=== PATIENT | male | born 1950 ===

== ENCOUNTER 2018-07-29 19:37 | Inpatient (IN) | payer MEDICARE ==
[2018-07-29 20:32] LABS: Hematocrit 26.3 % (35.5-45.6); Hemoglobin 8.5 gm/dl (11.8-15.2); Mean Corpuscular HGB Conc 32 % (32-34); Mean Corpuscular Volume 82 fl (84-94); Platelet Count 321 K/mm3 (140-440); Red Blood Count 3.23 M/mm3 (3.65-5.03)
[2018-07-29 20:40] LABS: Calcium 8.2 mg/dL (8.4-10.2)
[2018-07-29 21:18] LABS: Total Cells Counted 100
[2018-07-29 21:19] LABS: Anisocytosis 2+; Poikilocytosis 2+
[2018-07-29 21:20] LABS: Ovalocytes 1+; Schistocytes 2+
[2018-07-29 21:21] LABS: Burr Cells 1+; Target Cells Few
[2018-07-29 21:22] LABS: Platelet Estimate Consistent w Auto
--- NOTE | 2018-07-29 23:06 | XRay Report ---
FINAL REPORT PROCEDURE: XR CHEST ROUTINE 2V TECHNIQUE: PA and lateral chest radiographs were obtained. CPT 88321 HISTORY: Shortness of breath COMPARISON: 03/27/2018 FINDINGS: Heart: Heart size is slightly prominent but stable. Mediastinum/Vessels: Normal. Lungs/Pleural space: Mild atelectasis both lower lungs. Slight vascular congestion. Mild left effusio n is noted. Bony thorax: No acute osseous abnormality. Other: IMPRESSION: There is slight vascular congestion with mild atelectasis in both lower lungs. Mild left effusion..
[2018-07-29] MEDS ORDERED: LASIX IV ONE (23:25)
--- NOTE | 2018-07-30 00:01 | Emergency Department Report ---
ED Shortness of Breath HPI - General Chief Complaint: Dyspnea/Respdistress Stated Complaint: SOB Time Seen by Provider: 07/29/18 22:09 Source: patient, family Mode of arrival: Wheelchair Limitations: No Limitations - History of Present Illness Initial Comments: 67-year-old male with history of CHF presents to ED with complaint of shortness of breath and swelling to left hand 3 days. The patient reports dry cough. Patient reports chronic swelling in bilateral lower legs, however, states that they have increased over the last few days. Patient denies fever. States he is currently on Lasix, and is compliant with it. PCP: Dr Pilar RAYGOZA Complaint: shortness of breath, cough -: days(s) (3) Severity: moderate Consistency: constant Improves With: nothing, rest Known History Of: congestive heart failure Associated Symptoms: cough - Related Data Home Medications Medication Instructions Recorded Confirmed Last Taken Mv-Mins/Folic Acid/Guarana/Caf 1 each PO DAILY 10/26/17 04/24/18 04/23/18 [One Daily Tablet] 1 tablet Previous Rx's Medication Instructions Recorded Last Taken Type Sitagliptin Phosphate [Januvia] 100 mg PO DAILY #30 tablet 10/30/17 04/23/18 10:00 Rx oxyCODONE /ACETAMINOPHEN [Percocet 1 tab PO Q6H PRN #10 tablet 04/02/18 04/22/18 10:00 Rx 5/325 mg] Acetaminophen [Acetaminophen TAB] 650 mg PO Q4H PRN tablet 04/27/18 Unknown Rx Aspirin EC [Aspirin Enteric Coated 81 mg PO QDAY #30 tablet 04/27/18 Unknown Rx TAB] AtorvaSTATin [Lipitor] 10 mg PO DAILY #30 tablet 04/27/18 Unknown Rx Carvedilol [Coreg] 6.25 mg PO BID #60 tablet 04/27/18 Unknown Rx Clopidogrel [Plavix] 75 mg PO QDAY #30 tablet 04/27/18 Unknown Rx Doxycycline [Vibramycin CAP] 100 mg PO BID #42 capsule 04/27/18 Unknown Rx Ferrous Sulfate [Iron] 325 mg PO DAILY #30 tablet 04/27/18 Unknown Rx Gabapentin [Neurontin] 100 mg PO Q8HR #90 capsule 04/27/18 Unknown Rx Linagliptin [Tradjenta] 5 mg PO QDAY tablet 04/27/18 Unknown Rx glipiZIDE [Glipizide] 10 mg PO DAILY #30 tablet 04/27/18 Unknown Rx levoFLOXacin [Levaquin TAB] 500 mg PO Q48H #11 tablet 04/27/18 Unknown Rx oxyCODONE /ACETAMINOPHEN [Percocet 1 tab PO Q6H PRN #20 tablet 04/27/18 Unknown Rx 5/325 mg] Allergies Allergy/AdvReac Type Severity Reaction Status Date / Time No Known Allergies Allergy Verified 07/29/18 19:52 ED Review of Systems ROS: Stated complaint: SOB Other details as noted in HPI Comment: All other systems reviewed and negative Constitutional: denies: chills, fever Respiratory: cough, shortness of breath Cardiovascular: denies: chest pain Musculoskeletal: other (reports increased swelling to BLE and to left hand) ED Past Medical Hx - Past Medical History Hx Hypertension: Yes (CHF) Hx CVA: Yes Hx Heart Attack/AMI: No Hx Congestive Heart Failure: Yes Hx Diabetes: Yes Hx Deep Vein Thrombosis: Yes Hx Liver Disease: No (h/o DVT lower extremeties per notes in chart) Hx Renal Disease: Yes (CKD) Hx Sickle Cell Disease: No Hx Arthritis: Yes Hx Seizures: No Hx Asthma: No Hx COPD: No Hx Dementia: No Hx HIV: No Additional medical history: High Cholesterol - Surgical History Hx Coronary Stent: No Hx Pacemaker: No Hx Internal Defibrillator: No Additional Surgical History: jannet cataract surgery - Social History Smoking Status: Former Smoker Substance Use Type: None - Medications Home Medications: Home Medications Medication Instructions Recorded Confirmed Last Taken Type Mv-Mins/Folic Acid/Guarana/Caf 1 each PO DAILY 10/26/17 04/24/18 04/23/18 History [One Daily Tablet] 1 tablet Sitagliptin Phosphate [Januvia] 100 mg PO DAILY #30 tablet 10/30/17 04/24/18 04/23/18 10:00 Rx oxyCODONE /ACETAMINOPHEN [Percocet 1 tab PO Q6H PRN #10 tablet 04/02/18 04/24/18 04/22/18 10:00 Rx 5/325 mg] Acetaminophen [Acetaminophen TAB] 650 mg PO Q4H PRN tablet 04/27/18 Unknown Rx Aspirin EC [Aspirin Enteric Coated 81 mg PO QDAY #30 tablet 04/27/18 Unknown Rx TAB] AtorvaSTATin [Lipitor] 10 mg PO DAILY #30 tablet 04/27/18 Unknown Rx Carvedilol [Coreg] 6.25 mg PO BID #60 tablet 04/27/18 Unknown Rx Clopidogrel [Plavix] 75 mg PO QDAY #30 tablet 04/27/18 Unknown Rx Doxycycline [Vibramycin CAP] 100 mg PO BID #42 capsule 04/27/18 Unknown Rx Ferrous Sulfate [Iron] 325 mg PO DAILY #30 tablet 04/27/18 Unknown Rx Gabapentin [Neurontin] 100 mg PO Q8HR #90 capsule 04/27/18 Unknown Rx Linagliptin [Tradjenta] 5 mg PO QDAY tablet 04/27/18 Unknown Rx glipiZIDE [Glipizide] 10 mg PO DAILY #30 tablet 04/27/18 Unknown Rx levoFLOXacin [Levaquin TAB] 500 mg PO Q48H #11 tablet 04/27/18 Unknown Rx oxyCODONE /ACETAMINOPHEN [Percocet 1 tab PO Q6H PRN #20 tablet 04/27/18 Unknown Rx 5/325 mg] ED Physical Exam - General Limitations: No Limitations General appearance: alert, in no apparent distress - Head Head exam: Present: atraumatic, normocephalic - Eye Eye exam: Present: normal appearance - ENT ENT exam: Present: mucous membranes moist - Neck Neck exam: Present: normal inspection - Respiratory Respiratory exam: Present: rales (slight rales at the lung bases bilaterally). Absent: respiratory distress - Cardiovascular Cardiovascular Exam: Present: regular rate, normal rhythm - GI/Abdominal GI/Abdominal exam: Present: soft. Absent: distended, tenderness - Extremities Exam Extremities exam: Present: other (appearance of lymphedema to bilateral lower legs; 2+ edema to left hand, nontender, no erythema) - Neurological Exam Neurological exam: Present: alert, oriented X3 - Psychiatric Psychiatric exam: Present: normal affect, normal mood - Skin Skin exam: Present: warm, dry ED Course Vital Signs 07/29/18 07/29/18 07/29/18 19:52 22:44 22:46 Temperature 97.2 F L Pulse Rate 70 67 Respiratory 16 17 Rate Blood Pressure 184/107 189/110 O2 Sat by Pulse 99 100 99 Oximetry 07/29/18 07/29/18 07/30/18 23:00 23:16 00:00 Temperature Pulse Rate 64 61 66 Respiratory 19 21 14 Rate Blood Pressure 173/97 173/97 182/115 O2 Sat by Pulse 100 99 99 Oximetry 07/30/18 07/30/18 01:00 02:00 Temperature Pulse Rate 69 63 Respiratory 17 19 Rate Blood Pressure 184/107 175/86 O2 Sat by Pulse 100 99 Oximetry ED Medical Decision Making - Lab Data Result diagrams: 07/29/18 20:14 07/29/18 20:14 - EKG Data -: EKG Interpreted by Me EKG shows normal: sinus rhythm, intervals, QRS complexes, ST-T waves Rate: normal - EKG Data Interpretation: no acute changes, other (left axis deviation, prolonged QT) - Radiology Data Radiology results: report reviewed, image reviewed - Medical Decision Making 67-year-old male with history of congestive heart failure presents with increased swelling to bilateral lower extremities, swelling to left hand, cough and shortness of breath. Symptoms ongoing 3 days. On exam patient has slight rales the bilateral lung bases, significant edema to bilateral lower extremities, also pitting edema to the left hand. BNP elevated to 40,000. Creatinine 2.2 today, which is slightly increased from his last creatinine of 1.6 which was 4 months ago. However, Dr. Quezada, pt's PCP, stated in his H&P at that time the patient's baseline creatinine is around 2. Troponin slightly elevated, likely due to decreased renal function. EKG does not show any acute ST changes. One dose of IV Lasix 80 mg was given. Spoke with Dr. Álvarez, hospitalist, agrees to admit the patient. - Differential Diagnosis PE, pneumonia, URI Critical care attestation.: If time is entered above; I have spent that time in minutes in the direct care of this critically ill patient, excluding procedure time. ED Disposition Clinical Impression: CHF exacerbation Disposition: OP ADMIT IP TO THIS HOSP Is pt being admited?: Yes Condition: Stable Referrals: PRIMARY CARE, [Primary Care Provider] - 3-5 Days
[2018-07-30 00:37] LABS: INR 1.18 (0.87-1.13)
[2018-07-30 00:38] LABS: Partial Thromboplastin Time 33.9 Sec. (24.2-36.6)
[2018-07-30 02:05] LABS: Chol/HDL Ratio 2.18 %
[2018-07-30] MEDS ORDERED: D50W (25GM) Syringe IV PRN (03:14)
[2018-07-30 04:01] LABS: Creatine Kinase MB 1.8 ng/mL (0.0-4.0)
[2018-07-30] MEDS: APRESOLINE IV PRN ×2 (04:32→21:12)
[2018-07-30] MEDS: HumaLOG SUB-Q SCH ×4 (07:30→21:20)
--- NOTE | 2018-07-30 09:41 | Consultation ---
History of Present Illness - Reason for Consult Consult date: 07/30/18 acute renal failure, chronic renal failure, other (volume overload) - History of Present Illness The patient is a 67 yo AAM, who is followed by our service, with medical history significant for DM-2, Hypertension, HLD, CKD stage 3, chronic systolic CHF and chronic bilateral heel ulcer with Osteomyelitis who presented to the ER with complaint of shortness of breath and swelling of extremities. The patient was recently admitted with similar presentation. He gained significant weight between since discharge from the hospital. He also reports dry cough and Orthopnea. Patient is not compliant with diet. He denies fever, chills, weakness, N, V, D, abd. pain, dysuria, hematuria, cp, dizziness or syncope. His creatinine is 2.2 on admission. Nephrology was consulted for further evaluation. Past History Past Medical History: diabetes, heart failure, hypertension, hyperlipidemia, renal failure Medications and Allergies Allergies Allergy/AdvReac Type Severity Reaction Status Date / Time No Known Allergies Allergy Verified 07/29/18 19:52 Home Medications Medication Instructions Recorded Confirmed Last Taken Type Mv-Mins/Folic Acid/Guarana/Caf 1 each PO DAILY 10/26/17 04/24/18 04/23/18 History [One Daily Tablet] 1 tablet Sitagliptin Phosphate [Januvia] 100 mg PO DAILY #30 tablet 10/30/17 04/24/18 04/23/18 10:00 Rx oxyCODONE /ACETAMINOPHEN [Percocet 1 tab PO Q6H PRN #10 tablet 04/02/18 04/24/18 04/22/18 10:00 Rx 5/325 mg] Acetaminophen [Acetaminophen TAB] 650 mg PO Q4H PRN tablet 04/27/18 Unknown Rx Aspirin EC [Aspirin Enteric Coated 81 mg PO QDAY #30 tablet 04/27/18 Unknown Rx TAB] AtorvaSTATin [Lipitor] 10 mg PO DAILY #30 tablet 04/27/18 Unknown Rx Carvedilol [Coreg] 6.25 mg PO BID #60 tablet 04/27/18 Unknown Rx Clopidogrel [Plavix] 75 mg PO QDAY #30 tablet 04/27/18 Unknown Rx Doxycycline [Vibramycin CAP] 100 mg PO BID #42 capsule 04/27/18 Unknown Rx Ferrous Sulfate [Iron] 325 mg PO DAILY #30 tablet 04/27/18 Unknown Rx Gabapentin [Neurontin] 100 mg PO Q8HR #90 capsule 04/27/18 Unknown Rx Linagliptin [Tradjenta] 5 mg PO QDAY tablet 04/27/18 Unknown Rx glipiZIDE [Glipizide] 10 mg PO DAILY #30 tablet 04/27/18 Unknown Rx levoFLOXacin [Levaquin TAB] 500 mg PO Q48H #11 tablet 04/27/18 Unknown Rx oxyCODONE /ACETAMINOPHEN [Percocet 1 tab PO Q6H PRN #20 tablet 04/27/18 Unknown Rx 5/325 mg] Active Meds: Active Medications Aspirin (Halfprin Ec) 81 mg PO QDAY [facility] Carvedilol (Coreg) 6.25 mg PO BID [facility] Clopidogrel Bisulfate (Plavix) 75 mg PO QDAY [facility] Dextrose (D50w (25gm) Syringe) 50 ml IV PRN PRN PRN Reason: Hypoglycemia Furosemide (Lasix) 40 mg PO 0600,1800 [facility] Hydralazine HCl (Apresoline) 5 mg IV Q6H PRN PRN Reason: Hypertension Last Admin: 07/30/18 04:32 Dose: 5 mg Documented by: Insulin Human Lispro (Humalog) 0 unit SUB-Q [facility]; Protocol Pneumococcal Polyvalent Vaccine (Pneumovax 23) 0.5 ml IM .ONCE ONE Stop: 07/30/18 12:01 Review of Systems Constitutional: weight gain, no weight loss, no fever, no chills, no anorexia, no fatigue Cardiovascular: orthopnea, edema, shortness of breath, dyspnea on exertion, high blood pressure, leg edema, decreased exercise tolerance, no chest pain, no lightheadedness Respiratory: cough, shortness of breath, dyspnea on exertion, congestion, home oxygen, no hemoptysis Gastrointestinal: no abdominal pain, no nausea, no vomiting, no diarrhea, no melena, no jaundice Genitourinary Male: no dysuria, no hematuria Integumentary: wounds, darkening of skin, foot/leg ulcers Exam - Vital Signs Vital signs: Vital Signs Temp Pulse Resp BP Pulse Ox 97.2 F L 70 16 184/107 99 07/29/18 19:52 07/29/18 19:52 07/29/18 19:52 07/29/18 19:52 07/29/18 19:52 - General Appearance General appearance: well-developed, well-nourished, appears stated age, other (not in distress) EENT: ATNC, PERRL, mucous membranes moist, hearing intact, other (facial plethora) Neck: Present: neck supple, trachea midline, JVD/HJR Respiratory: Rales Heart: regular, S1S2, no murmurs Gastrointestinal: Present: normoactive bowel sounds, other (abdominal wall edema). Absent: tenderness, distended Integumentary: chronic venous stasis Neurologic: no focal deficit, no asterixis Musculoskeletal: Present: other (3+ edema of both LEs noted) Psychiatric: cooperative Results - Lab Results 07/29/18 20:14 07/29/18 20:14 Most recent lab results Calcium 8.2 mg/dL (8.4-10.2) L 07/29/18 20:14 Assessment and Plan 1. Acute kidney injury: DANIELLE superimposed on CKD stage 3 in the setting of volume overload. Urine studies. Monitor renal function. 2. FEN: Continue diuresis. Monitor lytes. 3. Volume overload: Change to IV lasix. Strict I & O. 4. H/o CHF. 5. DM-2. 6. HTN.
[2018-07-30] MEDS ORDERED: LASIX IV ONE (10:04)
--- NOTE | 2018-07-30 10:41 | Consultation ---
Addendum entered and electronically signed by MANDI HADLEY MD 07/30/18 10:54: Medical therapy for heart failure extubation and mild cardiomyopathy. Further c ardiac evaluation will depend on clinical course, treatment of fluid overload and for the invasive assessment may be contraindicated by the patient's chronic kidney disease. Original Note: History of Present Illness Consult date: 07/30/18 Consult reason: congestive heart failure History of present illness: This is a 67 year old man with multiple medical problems. He has peripheral vascular disease and is on plavix. He has diabetes and has lower extremity heel ulcers. He also has a history of hypertension and chronic renal failure. A year ago he underwent a thallium stress test that showed normal perfusion, but a mild dilated cardiomyopathy with ejection fraction 45-50% by an echocardiogram. He presented with complaints of shortness of breath and lower extremity edema, admitted with CHF exacerbation. A chest x-ray reports cardiomegaly with mild interstitial edema. Cardiac consultation was requested. EKG was a normal sinus rhythm with first degree AV block. No ischemic changes. Laboratory values include anemia with hematocrit of 26 and renal failure with creatinine of 2.2. Past History Past Medical History: diabetes, heart failure, hypertension, hyperlipidemia, renal failure Medications and Allergies Allergies Allergy/AdvReac Type Severity Reaction Status Date / Time No Known Allergies Allergy Verified 07/29/18 19:52 Home Medications Medication Instructions Recorded Confirmed Last Taken Type Mv-Mins/Folic Acid/Guarana/Caf 1 each PO DAILY 10/26/17 04/24/18 04/23/18 History [One Daily Tablet] 1 tablet Sitagliptin Phosphate [Januvia] 100 mg PO DAILY #30 tablet 10/30/17 04/24/18 04/23/18 10:00 Rx oxyCODONE /ACETAMINOPHEN [Percocet 1 tab PO Q6H PRN #10 tablet 04/02/18 04/24/18 04/22/18 10:00 Rx 5/325 mg] Acetaminophen [Acetaminophen TAB] 650 mg PO Q4H PRN tablet 04/27/18 Unknown Rx Aspirin EC [Aspirin Enteric Coated 81 mg PO QDAY #30 tablet 04/27/18 Unknown Rx TAB] AtorvaSTATin [Lipitor] 10 mg PO DAILY #30 tablet 04/27/18 Unknown Rx Carvedilol [Coreg] 6.25 mg PO BID #60 tablet 04/27/18 Unknown Rx Clopidogrel [Plavix] 75 mg PO QDAY #30 tablet 04/27/18 Unknown Rx Doxycycline [Vibramycin CAP] 100 mg PO BID #42 capsule 04/27/18 Unknown Rx Ferrous Sulfate [Iron] 325 mg PO DAILY #30 tablet 04/27/18 Unknown Rx Gabapentin [Neurontin] 100 mg PO Q8HR #90 capsule 04/27/18 Unknown Rx Linagliptin [Tradjenta] 5 mg PO QDAY tablet 04/27/18 Unknown Rx glipiZIDE [Glipizide] 10 mg PO DAILY #30 tablet 04/27/18 Unknown Rx levoFLOXacin [Levaquin TAB] 500 mg PO Q48H #11 tablet 04/27/18 Unknown Rx oxyCODONE /ACETAMINOPHEN [Percocet 1 tab PO Q6H PRN #20 tablet 04/27/18 Unknown Rx 5/325 mg] Active Meds: Active Medications Aspirin (Halfprin Ec) 81 mg PO QDAY [facility] Carvedilol (Coreg) 6.25 mg PO BID [facility] Clopidogrel Bisulfate (Plavix) 75 mg PO QDAY [facility] Dextrose (D50w (25gm) Syringe) 50 ml IV PRN PRN PRN Reason: Hypoglycemia Furosemide (Lasix) 80 mg IV 0600,1800 [facility] Furosemide (Lasix) 80 mg IV ONCE ONE Stop: 07/30/18 10:05 Hydralazine HCl (Apresoline) 5 mg IV Q6H PRN PRN Reason: Hypertension Last Admin: 07/30/18 04:32 Dose: 5 mg Documented by: Insulin Human Lispro (Humalog) 0 unit SUB-Q [facility]; Protocol Pneumococcal Polyvalent Vaccine (Pneumovax 23) 0.5 ml IM .ONCE ONE Stop: 07/30/18 12:01 Physical Examination Vital Signs Temp Pulse Resp BP Pulse Ox 97.2 F L 70 16 184/107 99 07/29/18 19:52 07/29/18 19:52 07/29/18 19:52 07/29/18 19:52 07/29/18 19:52 General appearance: no acute distress HEENT: Positive: PERRL Neck: Positive: trachea midline Cardiac: Positive: Reg Rate and Rhythm Lungs: Positive: Decreased Breath Sounds Neuro: Positive: Grossly Intact Extremities: Present: +2 Edema Results 07/29/18 20:14 07/29/18 20:14 Cardiac Enzymes 07/30/18 Range/Units 03:26 CK-MB (CK-2) 1.8 (0.0-4.0) ng/mL Coagulation 07/30/18 Range/Units 00:05 PT 15.4 H (12.2-14.9) Sec. INR 1.18 H (0.87-1.13) APTT 33.9 (24.2-36.6) Sec. Lipids 07/30/18 Range/Units 00:05 Triglycerides 65 (2-149) mg/dL Cholesterol 118 (50-199) mg/dL HDL Cholesterol 54 (40-59) mg/dL Cholesterol/HDL Ratio 2.18 % CBC 07/29/18 Range/Units 20:14 WBC 5.0 (4.5-11.0) K/mm3 RBC 3.23 L (3.65-5.03) M/mm3 Hgb 8.5 L (11.8-15.2) gm/dl Hct 26.3 L (35.5-45.6) % Plt Count 321 (140-440) K/mm3 Comprehensive Metabolic Panel 07/29/18 Range/Units 20:14 Sodium 141 (137-145) mmol/L Potassium 3.5 L (3.6-5.0) mmol/L Chloride 105.1 (98-107) mmol/L Carbon Dioxide 23 (22-30) mmol/L BUN 24 H (9-20) mg/dL Creatinine 2.2 H (0.8-1.5) mg/dL Glucose 94 (75-100) mg/dL Calcium 8.2 L (8.4-10.2) mg/dL Assessment and Plan Acute CHF exacerbataion Chronic renal failure PVD on plavix as an outpatient Dilated Cardiomyopathy thallium stress test showed normal perfusion 06/2017. mild dilated cardiomyopathy with ejection fraction 45-50% by an echocardiogram 06/2017. Diabetes with lower extremity heel ulcers. Hypertension
[2018-07-30] MEDS ORDERED: SODIUM CHLORIDE FLUSH SYRINGE 10 ML IV PRN (10:47)
[2018-07-30] MEDS ORDERED: NITROSTAT SL PRN (10:47)
[2018-07-30] MEDS ORDERED: ZOFRAN IV PRN (10:47)
[2018-07-30] MEDS ORDERED: TYLENOL PO PRN (10:47)
[2018-07-30 10:49] LABS: Creatine Kinase MB 2.2 ng/mL (0.0-4.0)
--- NOTE | 2018-07-30 10:49 | History and Physical Report ---
History of Present Illness Date of examination: 07/30/18 Date of admission: 07/30/18 03:13 Chief complaint: SHORTNESS OF BREATH History of present illness: Patient is a 67 year old male with past medical hx of CHF, pvd, DM, ckd, and chronic bilateral lower ext wound currently undergoing hyperbaric treatment. The patient presents to the hospital with complaints of worsening shortness of breath and swelling in the left hand and bilateral lower for 3 days. Per patient he denies chest pain, nausea and vomiting. He also denies orthopenia but unfortunately his diet has been poor. Patient has had increased salt intake. At the time of my evaluation he is resting in bed with mild shorntess of breath. Past History Past Medical History: diabetes, heart failure, hypertension, hyperlipidemia, renal failure Past Surgical History: Other Social history: no significant social history Family history: no significant family history Medications and Allergies Allergies Allergy/AdvReac Type Severity Reaction Status Date / Time No Known Allergies Allergy Verified 07/29/18 19:52 Home Medications Medication Instructions Recorded Confirmed Last Taken Type Mv-Mins/Folic Acid/Guarana/Caf 1 each PO DAILY 10/26/17 04/24/18 04/23/18 History [One Daily Tablet] 1 tablet Sitagliptin Phosphate [Januvia] 100 mg PO DAILY #30 tablet 10/30/17 04/24/18 04/23/18 10:00 Rx oxyCODONE /ACETAMINOPHEN [Percocet 1 tab PO Q6H PRN #10 tablet 04/02/18 04/24/18 04/22/18 10:00 Rx 5/325 mg] Acetaminophen [Acetaminophen TAB] 650 mg PO Q4H PRN tablet 04/27/18 Unknown Rx Aspirin EC [Aspirin Enteric Coated 81 mg PO QDAY #30 tablet 04/27/18 Unknown Rx TAB] AtorvaSTATin [Lipitor] 10 mg PO DAILY #30 tablet 04/27/18 Unknown Rx Carvedilol [Coreg] 6.25 mg PO BID #60 tablet 04/27/18 Unknown Rx Clopidogrel [Plavix] 75 mg PO QDAY #30 tablet 04/27/18 Unknown Rx Doxycycline [Vibramycin CAP] 100 mg PO BID #42 capsule 04/27/18 Unknown Rx Ferrous Sulfate [Iron] 325 mg PO DAILY #30 tablet 04/27/18 Unknown Rx Gabapentin [Neurontin] 100 mg PO Q8HR #90 capsule 04/27/18 Unknown Rx Linagliptin [Tradjenta] 5 mg PO QDAY tablet 04/27/18 Unknown Rx glipiZIDE [Glipizide] 10 mg PO DAILY #30 tablet 04/27/18 Unknown Rx levoFLOXacin [Levaquin TAB] 500 mg PO Q48H #11 tablet 04/27/18 Unknown Rx oxyCODONE /ACETAMINOPHEN [Percocet 1 tab PO Q6H PRN #20 tablet 04/27/18 Unknown Rx 5/325 mg] Active Meds: Active Medications Aspirin (Halfprin Ec) 81 mg PO QDAY SHANTELLE Carvedilol (Coreg) 6.25 mg PO BID SHANTELLE Clopidogrel Bisulfate (Plavix) 75 mg PO QDAY SHANTELLE Dextrose (D50w (25gm) Syringe) 50 ml IV PRN PRN PRN Reason: Hypoglycemia Furosemide (Lasix) 80 mg IV 0600,1800 SHANTELLE Furosemide (Lasix) 80 mg IV ONCE ONE Stop: 07/30/18 10:05 Hydralazine HCl (Apresoline) 5 mg IV Q6H PRN PRN Reason: Hypertension Last Admin: 07/30/18 04:32 Dose: 5 mg Documented by: Insulin Human Lispro (Humalog) 0 unit SUB-Q ACHS [facility]; Protocol Pneumococcal Polyvalent Vaccine (Pneumovax 23) 0.5 ml IM .ONCE ONE Stop: 07/30/18 12:01 Review of Systems All systems: negative Cardiovascular: shortness of breath, dyspnea on exertion, high blood pressure, leg edema, no chest pain, no orthopnea Respiratory: shortness of breath, dyspnea on exertion Integumentary: sores (bilateral lower ext) Exam - Constitutional Vitals: Temp Pulse Resp BP Pulse Ox 97.9 F 79 20 183/119 95 07/30/18 08:21 07/30/18 08:21 07/30/18 08:21 07/30/18 08:21 07/30/18 08:21 General appearance: Present: mild distress - EENT Eyes: Present: PERRL, EOM intact ENT: clear oral mucosa - Neck Neck: Present: supple, normal ROM - Respiratory Respiratory effort: normal Respiratory: bilateral: rales - Cardiovascular Rhythm: regular Heart Sounds: Present: S1 & S2. Absent: systolic murmur - Extremities Extremities: pulses intact, Full ROM Extremity abnormal: edema, ulceration (bilateral lower ext) Peripheral Pulses: within normal limits - Abdominal General gastrointestinal: Present: soft, non-distended, normal bowel sounds - Integumentary Integumentary: Present: erythema (lower ext with wound dressing) - Musculoskeletal Musculoskeletal: strength equal bilaterally - Psychiatric Psychiatric: appropriate mood/affect, cooperative - Allied Health Allied health notes reviewed: nursing Results - Labs CBC & Chem 7: 07/31/18 03:44 07/31/18 03:44 Labs: Laboratory Last Values WBC 5.0 K/mm3 (4.5-11.0) 07/29/18 20:14 RBC 3.23 M/mm3 (3.65-5.03) L 07/29/18 20:14 Hgb 8.5 gm/dl (11.8-15.2) L 07/29/18 20:14 Hct 26.3 % (35.5-45.6) L 07/29/18 20:14 MCV 82 fl (84-94) L 07/29/18 20:14 MCH 26 pg (28-32) L 07/29/18 20:14 MCHC 32 % (32-34) 07/29/18 20:14 RDW 20.0 % (13.2-15.2) H 07/29/18 20:14 Plt Count 321 K/mm3 (140-440) 07/29/18 20:14 Person % (Auto) Link Trainer Maintenance Man 07/29/18 20:14 Add Manual Diff Complete 07/29/18 20:14 Total Counted 100 07/29/18 20:14 Seg Neuts % (Manual) 63.0 % (40.0-70.0) 07/29/18 20:14 Band Neutrophils % 0 % 07/29/18 20:14 Lymphocytes % (Manual) 29.0 % (13.4-35.0) 07/29/18 20:14 Reactive Lymphs % (Man) 0 % 07/29/18 20:14 Monocytes % (Manual) 3.0 % (0.0-7.3) 07/29/18 20:14 Eosinophils % (Manual) 3.0 % (0.0-4.3) 07/29/18 20:14 Basophils % (Manual) 2.0 % (0.0-1.8) H 07/29/18 20:14 Metamyelocytes % 0 % 07/29/18 20:14 Myelocytes % 0 % 07/29/18 20:14 Promyelocytes % 0 % 07/29/18 20:14 Blast Cells % 0 % 07/29/18 20:14 Nucleated RBC % Not Reportable 07/29/18 20:14 Seg Neutrophils # Man 3.2 K/mm3 (1.8-7.7) 07/29/18 20:14 Band Neutrophils # 0.0 K/mm3 07/29/18 20:14 Lymphocytes # (Manual) 1.5 K/mm3 (1.2-5.4) 07/29/18 20:14 Abs React Lymphs (Man) 0.0 K/mm3 07/29/18 20:14 Monocytes # (Manual) 0.2 K/mm3 (0.0-0.8) 07/29/18 20:14 Eosinophils # (Manual) 0.2 K/mm3 (0.0-0.4) 07/29/18 20:14 Basophils # (Manual) 0.1 K/mm3 (0.0-0.1) 07/29/18 20:14 Metamyelocytes # 0.0 K/mm3 07/29/18 20:14 Myelocytes # 0.0 K/mm3 07/29/18 20:14 Promyelocytes # 0.0 K/mm3 07/29/18 20:14 Blast Cells # 0.0 K/mm3 07/29/18 20:14 WBC Morphology Not Reportable 07/29/18 20:14 Hypersegmented Neuts Not Reportable 07/29/18 20:14 Hyposegmented Neuts Not Reportable 07/29/18 20:14 Hypogranular Neuts Not Reportable 07/29/18 20:14 Smudge Cells Not Reportable 07/29/18 20:14 Toxic Granulation Not Reportable 07/29/18 20:14 Toxic Vacuolation Not Reportable 07/29/18 20:14 Dohle Bodies Not Reportable 07/29/18 20:14 Pelger-Huet Anomaly Not Reportable 07/29/18 20:14 Juan Diego Rods Not Reportable 07/29/18 20:14 Platelet Estimate Consistent w auto 07/29/18 20:14 Clumped Platelets Not Reportable 07/29/18 20:14 Plt Clumps, EDTA Not Reportable 07/29/18 20:14 Large Platelets Not Reportable 07/29/18 20:14 Giant Platelets Not Reportable 07/29/18 20:14 Platelet Satelliting Not Reportable 07/29/18 20:14 Plt Morphology Comment Not Reportable 07/29/18 20:14 RBC Morphology Not Reportable 07/29/18 20:14 Dimorphic RBCs Not Reportable 07/29/18 20:14 Polychromasia Not Reportable 07/29/18 20:14 Hypochromasia Not Reportable 07/29/18 20:14 Poikilocytosis 2+ 07/29/18 20:14 Anisocytosis 2+ 07/29/18 20:14 Microcytosis Not Reportable 07/29/18 20:14 Macrocytosis Not Reportable 07/29/18 20:14 Spherocytes Not Reportable 07/29/18 20:14 Pappenheimer Bodies Not Reportable 07/29/18 20:14 Sickle Cells Not Reportable 07/29/18 20:14 Target Cells Few 07/29/18 20:14 Tear Drop Cells Not Reportable 07/29/18 20:14 Ovalocytes 1+ 07/29/18 20:14 Helmet Cells Not Reportable 07/29/18 20:14 Frost-[place] Bodies Not Reportable 07/29/18 20:14 [place]s Rings Not Reportable 07/29/18 20:14 Alexis Cells 1+ 07/29/18 20:14 Bite Cells Not Reportable 07/29/18 20:14 Crenated Cell Not Reportable 07/29/18 20:14 Elliptocytes Not Reportable 07/29/18 20:14 Acanthocytes (Spur) Not Reportable 07/29/18 20:14 Rouleaux Not Reportable 07/29/18 20:14 Hemoglobin C Crystals Not Reportable 07/29/18 20:14 Schistocytes 2+ 07/29/18 20:14 Malaria parasites Not Reportable 07/29/18 20:14 Omer Bodies Not Reportable 07/29/18 20:14 Hem Pathologist Commnt No 07/29/18 20:14 PT 15.4 Sec. (12.2-14.9) H 07/30/18 00:05 INR 1.18 (0.87-1.13) H 07/30/18 00:05 APTT 33.9 Sec. (24.2-36.6) 07/30/18 00:05 Sodium 141 mmol/L (137-145) 07/29/18 20:14 Potassium 3.5 mmol/L (3.6-5.0) L 07/29/18 20:14 Chloride 105.1 mmol/L (98-107) 07/29/18 20:14 Carbon Dioxide 23 mmol/L (22-30) 07/29/18 20:14 Anion Gap 16 mmol/L 07/29/18 20:14 BUN 24 mg/dL (9-20) H 07/29/18 20:14 Creatinine 2.2 mg/dL (0.8-1.5) H 07/29/18 20:14 Estimated GFR 36 ml/min 07/29/18 20:14 BUN/Creatinine Ratio 11 % 07/29/18 20:14 Glucose 94 mg/dL (75-100) 07/29/18 20:14 POC Glucose 68 (70-105) L 07/30/18 06:33 Calcium 8.2 mg/dL (8.4-10.2) L 07/29/18 20:14 Total Creatine Kinase 93 units/L (55-170) 07/30/18 03:26 CK-MB (CK-2) 1.8 ng/mL (0.0-4.0) 07/30/18 03:26 CK-MB (CK-2) Rel Index 1.9 (0-4) 07/30/18 03:26 Troponin T 0.046 ng/mL (0.00-0.029) H 07/30/18 03:26 NT-Pro-B Natriuret Pep 59893 pg/mL (0-900) H 07/29/18 22:30 Triglycerides 65 mg/dL (2-149) 07/30/18 00:05 Cholesterol 118 mg/dL (50-199) 07/30/18 00:05 LDL Cholesterol Direct 63 mg/dL (50-130) 07/30/18 00:05 HDL Cholesterol 54 mg/dL (40-59) 07/30/18 00:05 Cholesterol/HDL Ratio 2.18 % 07/30/18 00:05 - Imaging and Cardiology Chest x-ray: image reviewed (vascular congerstion) Assessment and Plan Assessment and plan: Patient is a 67 year old male with past medical hx of CHF, pvd, DM, ckd, and chronic bilateral lower ext wound currently undergoing hyperbaric treatment. The patient presents to the hospital with complaints of worsening shortness of breath and swelling in the left hand and bilateral lower for 3 days. Per patient he denies chest pain, nausea and vomiting. He also denies orthopenia but unfortunately his diet has been poor. Patient has had increased salt intake. At the time of my evaluation he is resting in bed with mild shortness of breath. Acute on chronic sytolic congestive heart failure exacerbation Cardiomyopathy HTN DANIELLE on chronic Kidney disease secondary to vasomotor nephropathy Hypokalemia Anemia DM with Hypoglycemia Plan: Admit to Telemetry consult cardiology and nephrology in addition to woundcare team CHF protocol DM management protocol with sliding scale DVT/GI prophy Advance Directives: Yes Plan of care discussed with patient/family: Yes
[2018-07-30 10:52] LABS: Albumin 2.5 g/dL (3.9-5); Calcium 8.4 mg/dL (8.4-10.2)
[2018-07-30] MEDS ORDERED: PNEUMOVAX 23 IM ONE (12:00)
[2018-07-30] MEDS ORDERED: AFLURIA QUAD 2018-2019 SYRINGE IM ONE (12:00)
[2018-07-30] MEDS: HALFPRIN EC PO SCH (15:08)
[2018-07-30] MEDS: PLAVIX PO SCH (15:08)
[2018-07-30] MEDS: COREG PO SCH ×2 (15:09→21:12)
[2018-07-30] MEDS ORDERED: LASIX PO SCH (18:00)
[2018-07-30] MEDS: LASIX IV SCH (20:18)
[2018-07-30] MEDS: COLACE PO SCH (21:13)
[2018-07-30] MEDS: SODIUM CHLORIDE FLUSH SYRINGE 10 ML IV SCH (21:13)
[2018-07-31 04:19] LABS: Hematocrit 25.2 % (35.5-45.6); Hemoglobin 8.3 gm/dl (11.8-15.2); Mean Corpuscular HGB Conc 33 % (32-34); Mean Corpuscular Volume 81 fl (84-94); Platelet Count 303 K/mm3 (140-440); Red Blood Count 3.11 M/mm3 (3.65-5.03)
[2018-07-31 04:20] LABS: Red Cell Distribution Width 20.6 % (13.2-15.2)
[2018-07-31 04:32] LABS: Calcium 8.1 mg/dL (8.4-10.2)
[2018-07-31] MEDS: LASIX IV SCH ×2 (05:05→17:02)
[2018-07-31 05:10] LABS: Basophils % (Manual) 0 % (0.0-1.8); Total Cells Counted 100
[2018-07-31 05:11] LABS: Poikilocytosis 1+
[2018-07-31 05:12] LABS: Anisocytosis 2+; Platelet Estimate Consistent w Auto
[2018-07-31] MEDS ORDERED: K-DUR PO ONE ×3 (08:00→16:00)
[2018-07-31] MEDS: HumaLOG SUB-Q SCH ×4 (08:33→21:52)
[2018-07-31] MEDS: COREG PO SCH ×2 (10:22→21:51)
[2018-07-31] MEDS: COLACE PO SCH ×2 (10:22→21:51)
[2018-07-31] MEDS: HALFPRIN EC PO SCH (10:22)
[2018-07-31] MEDS: SODIUM CHLORIDE FLUSH SYRINGE 10 ML IV SCH ×2 (10:23→21:52)
--- NOTE | 2018-07-31 10:49 | Progress Note ---
Assessment and Plan 1. Acute on chronic combined systolic and diastolic heart failure. 2. Dilated cardiomyopathy with biventricular failure severe passive pulmonary hypertension left ventricular ejection fraction 20-25% 3. Peripheral vascular disease 4. Type 2 diabetes mellitus 5. Chronic kidney disease 6. Essential hypertension 7. Hyper-lipidemia Plan. Continue wound care. Continue conservative cardiac management Subjective Date of service: 07/31/18 Interval history: No cardiac symptoms Objective Vital Signs Temp Pulse Resp BP Pulse Ox 07/31/18 08:42 97.9 F 70 16 170/100 99 07/31/18 04:54 98.3 F 66 18 157/91 99 07/31/18 04:00 66 07/31/18 00:22 98.4 F 72 18 177/108 100 07/30/18 21:27 99 07/30/18 20:48 98.2 F 70 18 175/104 93 07/30/18 15:59 98.0 F 72 20 194/118 97 07/30/18 13:43 73 - Physical Examination General: Appears Well HEENT: Positive: PERRL Neck: Positive: trachea midline Cardiac: Positive: Regular Rate, S1/S2, S4, PMI, Laterally Displaced Lungs: Positive: clear to auscultation, No Wheeze, Rales, Rhonchi Neuro: Positive: Grossly Intact Abdomen: Positive: Active Bowel Sounds Extremities: Present: +2 Edema - Labs and Meds Cardiac Enzymes 07/30/18 07/30/18 Range/Units 10:15 10:15 AST 14 (5-40) units/L CK-MB (CK-2) 2.2 (0.0-4.0) ng/mL CBC 07/31/18 Range/Units 03:44 WBC 4.8 (4.5-11.0) K/mm3 RBC 3.11 L (3.65-5.03) M/mm3 Hgb 8.3 L (11.8-15.2) gm/dl Hct 25.2 L (35.5-45.6) % Plt Count 303 (140-440) K/mm3 Comprehensive Metabolic Panel 07/30/18 07/31/18 Range/Units 10:15 03:44 Sodium 142 142 (137-145) mmol/L Potassium 3.3 L 3.0 L (3.6-5.0) mmol/L Chloride 105.8 107.1 H (98-107) mmol/L Carbon Dioxide 21 L 25 (22-30) mmol/L BUN 26 H 25 H (9-20) mg/dL Creatinine 2.2 H 2.1 H (0.8-1.5) mg/dL Glucose 63 L 149 H (75-100) mg/dL Calcium 8.4 8.1 L (8.4-10.2) mg/dL AST 14 (5-40) units/L ALT 8 (7-56) units/L Alkaline Phosphatase 90 (35-129) units/L Total Protein 6.7 (6.3-8.2) g/dL Albumin 2.5 L (3.9-5) g/dL
[2018-07-31] MEDS: PLAVIX PO SCH (10:53)
--- NOTE | 2018-07-31 12:31 | Progress Note ---
Assessment and Plan Assessment and plan: Patient is a 67 year old male with past medical hx of CHF, pvd, DM, ckd, and chronic bilateral lower ext wound currently undergoing hyperbaric treatment. The patient presents to the hospital with complaints of worsening shortness of breath and swelling in the left hand and bilateral lower for 3 days. Per patient he denies chest pain, nausea and vomiting. He also denies orthopnea but unfortunately his diet has been poor. Patient has had increased salt intake Acute on chronic sytolic congestive heart failure exacerbation Cardiomyopathy HTN DANIELLE on chronic Kidney disease secondary to vasomotor nephropathy. Cr 2.1 today Hypokalemia Anemia DM with Hypoglycemia Plan: Admitted to tele Cardiology following Nephrology following CHF protocol DM management protocol with sliding scale DVT/GI prophylaxis History Interval history: Less shortness of breath No chest pain Hospitalist Physical - Physical exam Narrative exam: GEN: Not in acute distress, HEENT: Normocephalic, atraumatic, Neck: supple, No JVD Lungs: Clear to auscultation, no wheeze Heart:S1 and S2 regular, no murmurs, rubs or gallop, Abd:soft, non tender, non distended, normal bowel sounds Ext: No edema, no clubbing or cyanosis Neuro: Awake,alert, oriented x 3, No focal signs - Constitutional Vitals: Temp Pulse Resp BP Pulse Ox 97.9 F 70 16 170/100 99 07/31/18 08:42 07/31/18 08:42 07/31/18 08:42 07/31/18 08:42 07/31/18 08:42 General appearance: Present: mild distress Results - Labs CBC & Chem 7: 07/31/18 03:44 07/31/18 03:44 Labs: Laboratory Last Values WBC 4.8 K/mm3 (4.5-11.0) 07/31/18 03:44 RBC 3.11 M/mm3 (3.65-5.03) L 07/31/18 03:44 Hgb 8.3 gm/dl (11.8-15.2) L 07/31/18 03:44 Hct 25.2 % (35.5-45.6) L 07/31/18 03:44 MCV 81 fl (84-94) L 07/31/18 03:44 MCH 27 pg (28-32) L 07/31/18 03:44 MCHC 33 % (32-34) 07/31/18 03:44 RDW 20.6 % (13.2-15.2) H 07/31/18 03:44 Plt Count 303 K/mm3 (140-440) 07/31/18 03:44 Coffey % (Auto) Worm Picker 07/31/18 03:44 Add Manual Diff Complete 07/31/18 03:44 Total Counted 100 07/31/18 03:44 Seg Neuts % (Manual) 65.0 % (40.0-70.0) 07/31/18 03:44 Band Neutrophils % 1.0 % 07/31/18 03:44 Lymphocytes % (Manual) 23.0 % (13.4-35.0) 07/31/18 03:44 Reactive Lymphs % (Man) 0 % 07/31/18 03:44 Monocytes % (Manual) 10.0 % (0.0-7.3) H 07/31/18 03:44 Eosinophils % (Manual) 1.0 % (0.0-4.3) 07/31/18 03:44 Basophils % (Manual) 0 % (0.0-1.8) 07/31/18 03:44 Metamyelocytes % 0 % 07/31/18 03:44 Myelocytes % 0 % 07/31/18 03:44 Promyelocytes % 0 % 07/31/18 03:44 Blast Cells % 0 % 07/31/18 03:44 Nucleated RBC % Not Reportable 07/31/18 03:44 Seg Neutrophils # Man 3.1 K/mm3 (1.8-7.7) 07/31/18 03:44 Band Neutrophils # 0.0 K/mm3 07/31/18 03:44 Lymphocytes # (Manual) 1.1 K/mm3 (1.2-5.4) L 07/31/18 03:44 Abs React Lymphs (Man) 0.0 K/mm3 07/31/18 03:44 Monocytes # (Manual) 0.5 K/mm3 (0.0-0.8) 07/31/18 03:44 Eosinophils # (Manual) 0.0 K/mm3 (0.0-0.4) 07/31/18 03:44 Basophils # (Manual) 0.0 K/mm3 (0.0-0.1) 07/31/18 03:44 Metamyelocytes # 0.0 K/mm3 07/31/18 03:44 Myelocytes # 0.0 K/mm3 07/31/18 03:44 Promyelocytes # 0.0 K/mm3 07/31/18 03:44 Blast Cells # 0.0 K/mm3 07/31/18 03:44 WBC Morphology Not Reportable 07/31/18 03:44 Hypersegmented Neuts Not Reportable 07/31/18 03:44 Hyposegmented Neuts Not Reportable 07/31/18 03:44 Hypogranular Neuts Not Reportable 07/31/18 03:44 Smudge Cells Not Reportable 07/31/18 03:44 Toxic Granulation Not Reportable 07/31/18 03:44 Toxic Vacuolation Not Reportable 07/31/18 03:44 Dohle Bodies Not Reportable 07/31/18 03:44 Pelger-Huet Anomaly Not Reportable 07/31/18 03:44 Juan Diego Rods Not Reportable 07/31/18 03:44 Platelet Estimate Consistent w auto 07/31/18 03:44 Clumped Platelets Not Reportable 07/31/18 03:44 Plt Clumps, EDTA Not Reportable 07/31/18 03:44 Large Platelets Not Reportable 07/31/18 03:44 Giant Platelets Not Reportable 07/31/18 03:44 Platelet Satelliting Not Reportable 07/31/18 03:44 Plt Morphology Comment Not Reportable 07/31/18 03:44 RBC Morphology Not Reportable 07/31/18 03:44 Dimorphic RBCs Not Reportable 07/31/18 03:44 Polychromasia Not Reportable 07/31/18 03:44 Hypochromasia Not Reportable 07/31/18 03:44 Poikilocytosis 1+ 07/31/18 03:44 Anisocytosis 2+ 07/31/18 03:44 Microcytosis Not Reportable 07/31/18 03:44 Macrocytosis Not Reportable 07/31/18 03:44 Spherocytes Not Reportable 07/31/18 03:44 Pappenheimer Bodies Not Reportable 07/31/18 03:44 Sickle Cells Not Reportable 07/31/18 03:44 Target Cells Not Reportable 07/31/18 03:44 Tear Drop Cells Not Reportable 07/31/18 03:44 Ovalocytes Not Reportable 07/31/18 03:44 Helmet Cells Not Reportable 07/31/18 03:44 Frost-[place] Bodies Not Reportable 07/31/18 03:44 [place]ibert Rings Not Reportable 07/31/18 03:44 [place] Cells Not Reportable 07/31/18 03:44 Bite Cells Not Reportable 07/31/18 03:44 Crenated Cell Not Reportable 07/31/18 03:44 Elliptocytes 1+ 07/31/18 03:44 Acanthocytes (Spur) Not Reportable 07/31/18 03:44 Rouleaux Not Reportable 07/31/18 03:44 Hemoglobin C Crystals Not Reportable 07/31/18 03:44 Schistocytes Not Reportable 07/31/18 03:44 Malaria parasites Not Reportable 07/31/18 03:44 Omer Bodies Not Reportable 07/31/18 03:44 Hem Pathologist Commnt No 07/31/18 03:44 PT 15.4 Sec. (12.2-14.9) H 07/30/18 00:05 INR 1.18 (0.87-1.13) H 07/30/18 00:05 APTT 33.9 Sec. (24.2-36.6) 07/30/18 00:05 Sodium 142 mmol/L (137-145) 07/31/18 03:44 Potassium 3.0 mmol/L (3.6-5.0) L 07/31/18 03:44 Chloride 107.1 mmol/L (98-107) H 07/31/18 03:44 Carbon Dioxide 25 mmol/L (22-30) 07/31/18 03:44 Anion Gap 13 mmol/L 07/31/18 03:44 BUN 25 mg/dL (9-20) H 07/31/18 03:44 Creatinine 2.1 mg/dL (0.8-1.5) H 07/31/18 03:44 Estimated GFR 38 ml/min 07/31/18 03:44 BUN/Creatinine Ratio 12 % 07/31/18 03:44 Glucose 149 mg/dL (75-100) H 07/31/18 03:44 POC Glucose 148 (70-105) H 07/31/18 11:35 Calcium 8.1 mg/dL (8.4-10.2) L 07/31/18 03:44 Magnesium 2.00 mg/dL (1.7-2.3) 07/31/18 03:44 Total Bilirubin 0.40 mg/dL (0.1-1.2) 07/30/18 10:15 AST 14 units/L (5-40) 07/30/18 10:15 ALT 8 units/L (7-56) 07/30/18 10:15 Alkaline Phosphatase 90 units/L (35-129) 07/30/18 10:15 Total Creatine Kinase 113 units/L (55-170) 07/30/18 10:15 CK-MB (CK-2) 2.2 ng/mL (0.0-4.0) 07/30/18 10:15 CK-MB (CK-2) Rel Index 1.9 (0-4) 07/30/18 10:15 Troponin T 0.040 ng/mL (0.00-0.029) H 07/30/18 10:15 NT-Pro-B Natriuret Pep 54679 pg/mL (0-900) H 07/29/18 22:30 Total Protein 6.7 g/dL (6.3-8.2) 07/30/18 10:15 Albumin 2.5 g/dL (3.9-5) L 07/30/18 10:15 Albumin/Globulin Ratio 0.6 % 07/30/18 10:15 Triglycerides 65 mg/dL (2-149) 07/30/18 00:05 Cholesterol 118 mg/dL (50-199) 07/30/18 00:05 LDL Cholesterol Direct 63 mg/dL (50-130) 07/30/18 00:05 HDL Cholesterol 54 mg/dL (40-59) 07/30/18 00:05 Cholesterol/HDL Ratio 2.18 % 07/30/18 00:05
--- NOTE | 2018-07-31 12:57 | Progress Note ---
Assessment and Plan 1. Acute kidney injury: DANIELLE superimposed on CKD stage 3 in the setting of volume overload. Urine studies. Monitor renal function. 2. FEN: Continue diuresis. Monitor lytes. 3. Volume overload: On IV lasix. Strict I & O. 4. H/o CHF. 5. DM-2. 6. HTN. Subjective Date of service: 07/31/18 Interval history: Patient was seen and examined at the bedside. Objective - Vital Signs Vital signs: Vital Signs - 12hr 07/31/18 07/31/18 07/31/18 04:00 04:54 08:42 Temperature 98.3 F 97.9 F Pulse Rate 66 66 70 Respiratory 18 16 Rate Blood Pressure 157/91 170/100 O2 Sat by Pulse 99 99 Oximetry - General Appearance General appearance: well-developed, well-nourished, appears stated age, other (not in distress) EENT: ATNC, PERRL, mucous membranes moist, hearing intact Neck: supple Respiratory: Present: Clear to Ascultation Cardiology: regular, S1S2, no murmurs Gastrointestinal: normoactive bowel sounds, no tenderness, no distended, other (dependent edema noted) Integumentary: chronic venous stasis Neurologic: no focal deficit, no asterixis, confused, disoriented Musculoskeletal: other (3+ edema of both LEs noted) Psychiatric: cooperative - Lab 07/31/18 03:44 08/01/18 05:13 Most recent lab results Calcium 8.1 mg/dL (8.4-10.2) L 07/31/18 03:44 Magnesium 2.00 mg/dL (1.7-2.3) 07/31/18 03:44 Medications & Allergies - Medications Allergies/Adverse Reactions: Allergies No Known Allergies Allergy (Verified 07/29/18 19:52) Home Medications: Home Medications Medication Instructions Recorded Confirmed Last Taken Type Mv-Mins/Folic Acid/Guarana/Caf 1 each PO DAILY 10/26/17 07/31/18 07/29/18 History [One Daily Tablet] Sitagliptin Phosphate [Januvia] 100 mg PO DAILY #30 tablet 10/30/17 07/31/18 07/29/18 Rx oxyCODONE /ACETAMINOPHEN [Percocet 1 tab PO Q6H PRN #10 tablet 04/02/18 07/31/18 07/29/18 Rx 5/325 mg] Acetaminophen [Acetaminophen TAB] 650 mg PO Q4H PRN tablet 04/27/18 07/31/18 Unknown Rx Aspirin EC [Aspirin Enteric Coated 81 mg PO QDAY #30 tablet 04/27/18 07/31/18 07/29/18 Rx TAB] AtorvaSTATin [Lipitor] 10 mg PO DAILY #30 tablet 04/27/18 07/31/18 07/29/18 Rx Carvedilol [Coreg] 6.25 mg PO BID #60 tablet 04/27/18 07/31/18 07/29/18 Rx Clopidogrel [Plavix] 75 mg PO QDAY #30 tablet 04/27/18 07/31/18 07/29/18 Rx Doxycycline [Vibramycin CAP] 100 mg PO BID #42 capsule 04/27/18 07/31/18 07/29/18 Rx Ferrous Sulfate [Iron] 325 mg PO DAILY #30 tablet 04/27/18 07/31/18 07/29/18 Rx Gabapentin [Neurontin] 100 mg PO Q8HR #90 capsule 04/27/18 07/31/18 07/29/18 Rx Linagliptin [Tradjenta] 5 mg PO QDAY tablet 04/27/18 07/31/18 07/29/18 Rx glipiZIDE [Glipizide] 10 mg PO DAILY #30 tablet 04/27/18 07/31/18 07/29/18 Rx levoFLOXacin [Levaquin TAB] 500 mg PO Q48H #11 tablet 04/27/18 07/31/18 07/27/18 Rx oxyCODONE /ACETAMINOPHEN [Percocet 1 tab PO Q6H PRN #20 tablet 04/27/18 07/31/18 07/29/18 Rx 5/325 mg] Active Medications: Generic Name Dose Route Start Last Admin Trade Name Freq PRN Reason Stop Dose Admin Acetaminophen 650 mg 07/30/18 10:47 Tylenol PO Q4H PRN Pain MILD(1-3)/Fever >100.5/MIRAMONTES Aspirin 81 mg 07/30/18 10:07/31/18 10:22 Halfprin Ec PO 81 mg QDAY SHANTELLE Administration Carvedilol 6.25 mg 07/30/18 10:00 07/31/18 10:22 Coreg PO 6.25 mg BID SHANTELLE Administration Clopidogrel Bisulfate 75 mg 07/30/18 10:00 07/31/18 10:53 Plavix PO 75 mg QDAY SHANTELLE Administration Dextrose 50 ml 07/30/18 03:14 D50w (25gm) Syringe IV PRN PRN Hypoglycemia Docusate Sodium 100 mg 07/30/18 22:00 07/31/18 10:22 Colace PO 100 mg BID SHANTELLE Administration Furosemide 80 mg 07/30/18 18:00 07/31/18 05:05 Lasix IV 80 mg 0600,1800 SHANTELLE Administration Hydralazine HCl 5 mg 07/30/18 03:15 07/30/18 21:12 Apresoline IV 5 mg Q6H PRN Administration Hypertension Insulin Human Lispro 0 unit 07/30/18 07:30 07/31/18 12:01 Humalog SUB-Q Not Given ACHS [facility] Protocol Nitroglycerin 0.4 mg 07/30/18 10:47 Nitrostat SL .Q5MIN PRN Chest Pain Ondansetron HCl 4 mg 07/30/18 10:47 Zofran IV Q8H PRN Nausea And Vomiting Sodium Chloride 10 ml 07/30/18 22:00 07/31/18 10:23 Sodium Chloride Flush Syringe 10 Ml IV 10 ml BID SHANTELLE Administration Sodium Chloride 10 ml 07/30/18 10:47 Sodium Chloride Flush Syringe 10 Ml IV PRN PRN LINE FLUSH
[2018-07-31] MEDS: APRESOLINE IV PRN (16:04)
[2018-07-31] MEDS: HEPARIN SUB-Q SCH (21:52)
[2018-08-01] MEDS: LASIX IV SCH ×2 (05:41→17:47)
[2018-08-01 06:08] LABS: Calcium 7.9 mg/dL (8.4-10.2)
[2018-08-01] MEDS: HumaLOG SUB-Q SCH ×4 (07:30→23:13)
[2018-08-01] MEDS: COLACE PO SCH ×2 (09:45→23:13)
[2018-08-01] MEDS: HALFPRIN EC PO SCH (09:45)
[2018-08-01] MEDS: ZAROXOLYN PO SCH (09:45)
[2018-08-01] MEDS: COREG PO SCH ×2 (09:45→23:12)
[2018-08-01] MEDS: PLAVIX PO SCH (09:45)
[2018-08-01] MEDS: HEPARIN SUB-Q SCH ×2 (09:45→23:13)
[2018-08-01] MEDS: SODIUM CHLORIDE FLUSH SYRINGE 10 ML IV SCH ×2 (09:52→23:14)
--- NOTE | 2018-08-01 09:59 | Progress Note ---
Assessment and Plan 1. Acute on chronic combined systolic and diastolic heart failure. 2. Dilated cardiomyopathy with biventricular failure severe passive pulmonary hypertension left ventricular ejection fraction 20-25% 3. Peripheral vascular disease 4. Type 2 diabetes mellitus 5. Chronic kidney disease 6. Essential hypertension 7. Hyper-lipidemia Plan. Continue wound care. Continue conservative cardiac management Subjective Date of service: 08/01/18 Interval history: No cardiac symptoms Objective Vital Signs Temp Pulse Resp BP Pulse Ox 08/01/18 08:37 97.8 F 72 18 186/102 98 08/01/18 04:30 98.4 F 70 16 161/96 92 08/01/18 04:00 66 07/31/18 22:28 98.4 F 70 16 162/85 93 07/31/18 19:21 98.5 F 72 16 164/95 95 07/31/18 18:18 72 161/92 96 07/31/18 16:30 66 07/31/18 16:10 100 07/31/18 16:04 73 169/95 07/31/18 15:44 97.4 F L 73 16 169/95 93 - Physical Examination General: Appears Well HEENT: Positive: PERRL Neck: Positive: trachea midline Cardiac: Positive: Regular Rate, S1/S2, S3, PMI, Dilated, Laterally Displaced Lungs: Positive: clear to auscultation, No Wheeze, Rales, Rhonchi Neuro: Positive: Grossly Intact Abdomen: Positive: Active Bowel Sounds Extremities: Present: +2 Edema - Labs and Meds Comprehensive Metabolic Panel 08/01/18 Range/Units 05:13 Sodium 141 (137-145) mmol/L Potassium 3.8 D (3.6-5.0) mmol/L Chloride 105.1 (98-107) mmol/L Carbon Dioxide 24 (22-30) mmol/L BUN 24 H (9-20) mg/dL Creatinine 2.1 H (0.8-1.5) mg/dL Glucose 102 H (75-100) mg/dL Calcium 7.9 L (8.4-10.2) mg/dL
--- NOTE | 2018-08-01 14:27 | XRay Report ---
FINAL REPORT EXAM: XR CHEST 1V AP HISTORY: Shortness of breath, fluid overload COMPARISON: Chest radiograph performed on 07/29/2018 TECHNIQUE: Single frontal view of the chest FINDINGS: Stable cardiomegaly. Mild prominence of the pulmonary vasculature. Decreased interstitial prominence. No focal consolidation. No pleural effusion or pneumothorax. No acute bony or soft tissue abnormality. IMPRESSION: Decreased interstitial prominence. Mild residual pulmonary vascular congestion. Stable cardiomegaly.
--- NOTE | 2018-08-01 15:05 | Progress Note ---
Assessment and Plan 1. Acute kidney injury: DANIELLE superimposed on CKD stage 3 in the setting of volume overload. Urine studies. Monitor renal function. 2. FEN: Diuresing well on IV Lasix. Also on Metolazone. Monitor lytes. 3. Volume overload: On IV lasix. Strict I & O. 4. H/o CHF. 5. DM-2. 6. HTN. Subjective Date of service: 08/01/18 Interval history: Patient was seen and examined at the bedside. Objective - Vital Signs Vital signs: Vital Signs - 12hr 08/01/18 08/01/18 08/01/18 04:00 04:30 08:37 Temperature 98.4 F 97.8 F Pulse Rate 66 70 72 Respiratory 16 18 Rate Blood Pressure 161/96 186/102 O2 Sat by Pulse 92 98 Oximetry 08/01/18 12:14 Temperature 98.5 F Pulse Rate 71 Respiratory 16 Rate Blood Pressure 154/94 O2 Sat by Pulse 98 Oximetry - General Appearance General appearance: well-developed, well-nourished, appears stated age, other (not in distress) EENT: ATNC, PERRL, mucous membranes moist, hearing intact, vision intact Neck: supple Respiratory: Present: Clear to Ascultation Cardiology: regular, S1S2, no murmurs Gastrointestinal: normoactive bowel sounds, no tenderness, other (anasarca noted) Integumentary: chronic venous stasis Neurologic: no focal deficit, no asterixis, confused, disoriented Musculoskeletal: other (3+ edema of both LEs noted) - Lab 07/31/18 03:44 08/01/18 05:13 Most recent lab results Calcium 7.9 mg/dL (8.4-10.2) L 08/01/18 05:13 Magnesium 2.00 mg/dL (1.7-2.3) 07/31/18 03:44 Medications & Allergies - Medications Allergies/Adverse Reactions: Allergies No Known Allergies Allergy (Verified 07/29/18 19:52) Home Medications: Home Medications Medication Instructions Recorded Confirmed Last Taken Type Mv-Mins/Folic Acid/Guarana/Caf 1 each PO DAILY 10/26/17 07/31/18 07/29/18 History [One Daily Tablet] Sitagliptin Phosphate [Januvia] 100 mg PO DAILY #30 tablet 10/30/17 07/31/18 07/29/18 Rx oxyCODONE /ACETAMINOPHEN [Percocet 1 tab PO Q6H PRN #10 tablet 04/02/18 07/31/18 07/29/18 Rx 5/325 mg] Acetaminophen [Acetaminophen TAB] 650 mg PO Q4H PRN tablet 04/27/18 07/31/18 Unknown Rx Aspirin EC [Aspirin Enteric Coated 81 mg PO QDAY #30 tablet 04/27/18 07/31/18 07/29/18 Rx TAB] AtorvaSTATin [Lipitor] 10 mg PO DAILY #30 tablet 04/27/18 07/31/18 07/29/18 Rx Carvedilol [Coreg] 6.25 mg PO BID #60 tablet 04/27/18 07/31/18 07/29/18 Rx Clopidogrel [Plavix] 75 mg PO QDAY #30 tablet 04/27/18 07/31/18 07/29/18 Rx Doxycycline [Vibramycin CAP] 100 mg PO BID #42 capsule 04/27/18 07/31/18 07/29/18 Rx Ferrous Sulfate [Iron] 325 mg PO DAILY #30 tablet 04/27/18 07/31/18 07/29/18 Rx Gabapentin [Neurontin] 100 mg PO Q8HR #90 capsule 04/27/18 07/31/18 07/29/18 Rx Linagliptin [Tradjenta] 5 mg PO QDAY tablet 04/27/18 07/31/18 07/29/18 Rx glipiZIDE [Glipizide] 10 mg PO DAILY #30 tablet 04/27/18 07/31/18 07/29/18 Rx levoFLOXacin [Levaquin TAB] 500 mg PO Q48H #11 tablet 04/27/18 07/31/18 07/27/18 Rx oxyCODONE /ACETAMINOPHEN [Percocet 1 tab PO Q6H PRN #20 tablet 04/27/18 07/31/18 07/29/18 Rx 5/325 mg] Active Medications: Generic Name Dose Route Start Last Admin Trade Name Freq PRN Reason Stop Dose Admin Acetaminophen 650 mg 07/30/18 10:47 Tylenol PO Q4H PRN Pain MILD(1-3)/Fever >100.5/MIRAMONTES Aspirin 81 mg 07/30/18 10:00 08/01/18 09:45 Halfprin Ec PO 81 mg QDAY SHANTELLE Administration Carvedilol 6.25 mg 07/30/18 10:00 08/01/18 09:45 Coreg PO 6.25 mg BID SHANTELLE Administration Clopidogrel Bisulfate 75 mg 07/30/18 10:00 08/01/18 09:45 Plavix PO 75 mg QDAY SHANTELLE Administration Dextrose 50 ml 07/30/18 03:14 D50w (25gm) Syringe IV PRN PRN Hypoglycemia Docusate Sodium 100 mg 07/30/18 22:00 08/01/18 09:45 Colace PO 100 mg BID SHANTELLE Administration Furosemide 80 mg 07/30/18 18:00 08/01/18 05:41 Lasix IV 80 mg 0600,1800 SHANTELLE Administration Heparin Sodium (Porcine) 5,000 unit 07/31/18 22:00 08/01/18 09:45 Heparin SUB-Q 5,000 unit Q12HR SHANTELLE Administration Hydralazine HCl 5 mg 07/30/18 03:15 07/31/18 16:04 Apresoline IV 5 mg Q6H PRN Administration Hypertension Insulin Human Lispro 0 unit 07/30/18 07:30 08/01/18 13:12 Humalog SUB-Q Not Given ACHS [facility] Protocol Metolazone 2.5 mg 08/01/18 10:00 08/01/18 09:45 Zaroxolyn PO 2.5 mg QDAY SHANTELLE Administration Nitroglycerin 0.4 mg 07/30/18 10:47 Nitrostat SL .Q5MIN PRN Chest Pain Ondansetron HCl 4 mg 07/30/18 10:47 Zofran IV Q8H PRN Nausea And Vomiting Sodium Chloride 10 ml 07/30/18 22:00 08/01/18 09:52 Sodium Chloride Flush Syringe 10 Ml IV 10 ml BID SHANTELLE Administration Sodium Chloride 10 ml 07/30/18 10:47 08/01/18 05:42 Sodium Chloride Flush Syringe 10 Ml IV 10 ml PRN PRN Administration LINE FLUSH
--- NOTE | 2018-08-01 15:19 | Progress Note ---
Assessment and Plan Assessment and plan: Patient is a 67 year old male with past medical hx of CHF, pvd, DM, ckd, and chronic bilateral lower ext wound currently undergoing hyperbaric treatment. The patient presents to the hospital with complaints of worsening shortness of breath and swelling in the left hand and bilateral lower for 3 days. Per patient he denies chest pain, nausea and vomiting. Acute on chronic sytolic congestive heart failure exacerbation Cardiomyopathy HTN DANIELLE on chronic Kidney disease secondary to vasomotor nephropathy. Cr 2.1 again today Hypokalemia Anemia DM with Hypoglycemia Plan: Admitted to tele Cardiology following Nephrology following CHF protocol DM management protocol with sliding scale DVT/GI prophylaxis History Interval history: Less shortness of breath No chest pain Hospitalist Physical - Physical exam Narrative exam: GEN: Not in acute distress, HEENT: Normocephalic, atraumatic, Neck: supple, No JVD Lungs: Clear to auscultation, no wheeze Heart:S1 and S2 regular, no murmurs, rubs or gallop, Abd:soft, non tender, non distended, normal bowel sounds Ext: Bilateral edema, chronic changes, no clubbing or cyanosis Neuro: Awake,alert, oriented x 3, No focal signs - Constitutional Vitals: Temp Pulse Resp BP Pulse Ox 98.5 F 71 16 154/94 98 08/01/18 12:14 08/01/18 12:14 08/01/18 12:14 08/01/18 12:14 08/01/18 12:14 Results - Labs CBC & Chem 7: 07/31/18 03:44 08/01/18 05:13 Labs: Laboratory Last Values WBC 4.8 K/mm3 (4.5-11.0) 07/31/18 03:44 RBC 3.11 M/mm3 (3.65-5.03) L 07/31/18 03:44 Hgb 8.3 gm/dl (11.8-15.2) L 07/31/18 03:44 Hct 25.2 % (35.5-45.6) L 07/31/18 03:44 MCV 81 fl (84-94) L 07/31/18 03:44 MCH 27 pg (28-32) L 07/31/18 03:44 MCHC 33 % (32-34) 07/31/18 03:44 RDW 20.6 % (13.2-15.2) H 07/31/18 03:44 Plt Count 303 K/mm3 (140-440) 07/31/18 03:44 Hayes % (Auto) [employer] 07/31/18 03:44 Add Manual Diff Complete 07/31/18 03:44 Total Counted 100 07/31/18 03:44 Seg Neuts % (Manual) 65.0 % (40.0-70.0) 07/31/18 03:44 Band Neutrophils % 1.0 % 07/31/18 03:44 Lymphocytes % (Manual) 23.0 % (13.4-35.0) 07/31/18 03:44 Reactive Lymphs % (Man) 0 % 07/31/18 03:44 Monocytes % (Manual) 10.0 % (0.0-7.3) H 07/31/18 03:44 Eosinophils % (Manual) 1.0 % (0.0-4.3) 07/31/18 03:44 Basophils % (Manual) 0 % (0.0-1.8) 07/31/18 03:44 Metamyelocytes % 0 % 07/31/18 03:44 Myelocytes % 0 % 07/31/18 03:44 Promyelocytes % 0 % 07/31/18 03:44 Blast Cells % 0 % 07/31/18 03:44 Nucleated RBC % Not Reportable 07/31/18 03:44 Seg Neutrophils # Man 3.1 K/mm3 (1.8-7.7) 07/31/18 03:44 Band Neutrophils # 0.0 K/mm3 07/31/18 03:44 Lymphocytes # (Manual) 1.1 K/mm3 (1.2-5.4) L 07/31/18 03:44 Abs React Lymphs (Man) 0.0 K/mm3 07/31/18 03:44 Monocytes # (Manual) 0.5 K/mm3 (0.0-0.8) 07/31/18 03:44 Eosinophils # (Manual) 0.0 K/mm3 (0.0-0.4) 07/31/18 03:44 Basophils # (Manual) 0.0 K/mm3 (0.0-0.1) 07/31/18 03:44 Metamyelocytes # 0.0 K/mm3 07/31/18 03:44 Myelocytes # 0.0 K/mm3 07/31/18 03:44 Promyelocytes # 0.0 K/mm3 07/31/18 03:44 Blast Cells # 0.0 K/mm3 07/31/18 03:44 WBC Morphology Not Reportable 07/31/18 03:44 Hypersegmented Neuts Not Reportable 07/31/18 03:44 Hyposegmented Neuts Not Reportable 07/31/18 03:44 Hypogranular Neuts Not Reportable 07/31/18 03:44 Smudge Cells Not Reportable 07/31/18 03:44 Toxic Granulation Not Reportable 07/31/18 03:44 Toxic Vacuolation Not Reportable 07/31/18 03:44 Dohle Bodies Not Reportable 07/31/18 03:44 Pelger-Huet Anomaly Not Reportable 07/31/18 03:44 Juan Diego Rods Not Reportable 07/31/18 03:44 Platelet Estimate Consistent w auto 07/31/18 03:44 Clumped Platelets Not Reportable 07/31/18 03:44 Plt Clumps, EDTA Not Reportable 07/31/18 03:44 Large Platelets Not Reportable 07/31/18 03:44 Giant Platelets Not Reportable 07/31/18 03:44 Platelet Satelliting Not Reportable 07/31/18 03:44 Plt Morphology Comment Not Reportable 07/31/18 03:44 RBC Morphology Not Reportable 07/31/18 03:44 Dimorphic RBCs Not Reportable 07/31/18 03:44 Polychromasia Not Reportable 07/31/18 03:44 Hypochromasia Not Reportable 07/31/18 03:44 Poikilocytosis 1+ 07/31/18 03:44 Anisocytosis 2+ 07/31/18 03:44 Microcytosis Not Reportable 07/31/18 03:44 Macrocytosis Not Reportable 07/31/18 03:44 Spherocytes Not Reportable 07/31/18 03:44 Pappenheimer Bodies Not Reportable 07/31/18 03:44 Sickle Cells Not Reportable 07/31/18 03:44 Target Cells Not Reportable 07/31/18 03:44 Tear Drop Cells Not Reportable 07/31/18 03:44 Ovalocytes Not Reportable 07/31/18 03:44 Helmet Cells Not Reportable 07/31/18 03:44 Frost-Br[place] Bodies Not Reportable 07/31/18 03:44 Bly Rings Not Reportable 07/31/18 03:44 Micheal Cells Not Reportable 07/31/18 03:44 Bite Cells Not Reportable 07/31/18 03:44 Crenated Cell Not Reportable 07/31/18 03:44 Elliptocytes 1+ 07/31/18 03:44 Acanthocytes (Spur) Not Reportable 07/31/18 03:44 Rouleaux Not Reportable 07/31/18 03:44 Hemoglobin C Crystals Not Reportable 07/31/18 03:44 Schistocytes Not Reportable 07/31/18 03:44 Malaria parasites Not Reportable 07/31/18 03:44 Omer Bodies Not Reportable 07/31/18 03:44 Hem Pathologist Commnt No 07/31/18 03:44 PT 15.4 Sec. (12.2-14.9) H 07/30/18 00:05 INR 1.18 (0.87-1.13) H 07/30/18 00:05 APTT 33.9 Sec. (24.2-36.6) 07/30/18 00:05 Sodium 141 mmol/L (137-145) 08/01/18 05:13 Potassium 3.8 mmol/L (3.6-5.0) D 08/01/18 05:13 Chloride 105.1 mmol/L (98-107) 08/01/18 05:13 Carbon Dioxide 24 mmol/L (22-30) 08/01/18 05:13 Anion Gap 16 mmol/L 08/01/18 05:13 BUN 24 mg/dL (9-20) H 08/01/18 05:13 Creatinine 2.1 mg/dL (0.8-1.5) H 08/01/18 05:13 Estimated GFR 38 ml/min 08/01/18 05:13 BUN/Creatinine Ratio 11 % 08/01/18 05:13 Glucose 102 mg/dL (75-100) H 08/01/18 05:13 POC Glucose 140 (70-105) H 08/01/18 12:15 Calcium 7.9 mg/dL (8.4-10.2) L 08/01/18 05:13 Magnesium 2.00 mg/dL (1.7-2.3) 07/31/18 03:44 Total Bilirubin 0.40 mg/dL (0.1-1.2) 07/30/18 10:15 AST 14 units/L (5-40) 07/30/18 10:15 ALT 8 units/L (7-56) 07/30/18 10:15 Alkaline Phosphatase 90 units/L (35-129) 07/30/18 10:15 Total Creatine Kinase 113 units/L (55-170) 07/30/18 10:15 CK-MB (CK-2) 2.2 ng/mL (0.0-4.0) 07/30/18 10:15 CK-MB (CK-2) Rel Index 1.9 (0-4) 07/30/18 10:15 Troponin T 0.040 ng/mL (0.00-0.029) H 07/30/18 10:15 NT-Pro-B Natriuret Pep 29867 pg/mL (0-900) H 07/29/18 22:30 Total Protein 6.7 g/dL (6.3-8.2) 07/30/18 10:15 Albumin 2.5 g/dL (3.9-5) L 07/30/18 10:15 Albumin/Globulin Ratio 0.6 % 07/30/18 10:15 Triglycerides 65 mg/dL (2-149) 07/30/18 00:05 Cholesterol 118 mg/dL (50-199) 07/30/18 00:05 LDL Cholesterol Direct 63 mg/dL (50-130) 07/30/18 00:05 HDL Cholesterol 54 mg/dL (40-59) 07/30/18 00:05 Cholesterol/HDL Ratio 2.18 % 07/30/18 00:05
[2018-08-01] MEDS ORDERED: TYLENOL PO PRN (15:20)
[2018-08-01] MEDS: FEOSOL PO SCH (17:46)
[2018-08-01] MEDS: NEURONTIN PO SCH ×2 (17:47→23:13)
[2018-08-02] MEDS: LASIX IV SCH ×2 (06:06→18:44)
[2018-08-02] MEDS: NEURONTIN PO SCH ×3 (06:06→21:58)
[2018-08-02 06:35] LABS: Calcium 7.9 mg/dL (8.4-10.2)
[2018-08-02] MEDS: HumaLOG SUB-Q SCH ×3 (07:30→22:02)
--- NOTE | 2018-08-02 09:42 | Progress Note ---
Assessment and Plan 1. Acute kidney injury: DANIELLE superimposed on CKD stage 3 in the setting of volume overload. Urine studies. Monitor renal function. 2. FEN: Diuresing well on IV Lasix and PO Metolazone. Replete K. Monitor. 3. Volume overload: On IV Lasix and PO Metolazone Strict I & O. 4. H/o CHF. 5. DM-2. 6. HTN. Subjective Date of service: 08/02/18 Interval history: Patient was seen and examined at the bedside. Objective - Vital Signs Vital signs: Vital Signs - 12hr 08/01/18 08/01/18 08/02/18 23:11 23:12 03:29 Temperature 98.5 F 98.5 F Pulse Rate 73 71 70 Respiratory 16 18 Rate Blood Pressure 163/94 163/94 166/95 O2 Sat by Pulse 96 100 Oximetry 08/02/18 08/02/18 04:00 08:10 Temperature 98.6 F Pulse Rate 71 63 Respiratory 20 Rate Blood Pressure 178/92 O2 Sat by Pulse 97 Oximetry - General Appearance General appearance: well-developed, well-nourished, appears stated age, other (not in distress) EENT: ATNC, PERRL, mucous membranes moist, hearing intact, vision intact Neck: supple Respiratory: Present: Clear to Ascultation Cardiology: regular, S1S2, no murmurs Gastrointestinal: normoactive bowel sounds, no tenderness, other (anasarca noted) Integumentary: warm and dry Neurologic: no focal deficit, no asterixis, confused, disoriented Musculoskeletal: other (3+ edema of both LEs, UE edema noted) Psychiatric: cooperative - Lab 07/31/18 03:44 08/02/18 04:40 Most recent lab results Calcium 7.9 mg/dL (8.4-10.2) L 08/02/18 04:40 Magnesium 2.00 mg/dL (1.7-2.3) 07/31/18 03:44 Medications & Allergies - Medications Allergies/Adverse Reactions: Allergies No Known Allergies Allergy (Verified 07/29/18 19:52) Home Medications: Home Medications Medication Instructions Recorded Confirmed Last Taken Type Mv-Mins/Folic Acid/Guarana/Caf 1 each PO DAILY 10/26/17 07/31/18 07/29/18 History [One Daily Tablet] Sitagliptin Phosphate [Januvia] 100 mg PO DAILY #30 tablet 10/30/17 07/31/18 07/29/18 Rx oxyCODONE /ACETAMINOPHEN [Percocet 1 tab PO Q6H PRN #10 tablet 04/02/18 07/31/18 07/29/18 Rx 5/325 mg] Acetaminophen [Acetaminophen TAB] 650 mg PO Q4H PRN tablet 04/27/18 07/31/18 Unknown Rx Aspirin EC [Aspirin Enteric Coated 81 mg PO QDAY #30 tablet 04/27/18 07/31/18 07/29/18 Rx TAB] AtorvaSTATin [Lipitor] 10 mg PO DAILY #30 tablet 04/27/18 07/31/18 07/29/18 Rx Carvedilol [Coreg] 6.25 mg PO BID #60 tablet 04/27/18 07/31/18 07/29/18 Rx Clopidogrel [Plavix] 75 mg PO QDAY #30 tablet 04/27/18 07/31/18 07/29/18 Rx Doxycycline [Vibramycin CAP] 100 mg PO BID #42 capsule 04/27/18 07/31/18 07/29/18 Rx Ferrous Sulfate [Iron] 325 mg PO DAILY #30 tablet 04/27/18 07/31/18 07/29/18 Rx Gabapentin [Neurontin] 100 mg PO Q8HR #90 capsule 04/27/18 07/31/18 07/29/18 Rx Linagliptin [Tradjenta] 5 mg PO QDAY tablet 04/27/18 07/31/18 07/29/18 Rx glipiZIDE [Glipizide] 10 mg PO DAILY #30 tablet 04/27/18 07/31/18 07/29/18 Rx levoFLOXacin [Levaquin TAB] 500 mg PO Q48H #11 tablet 04/27/18 07/31/18 07/27/18 Rx oxyCODONE /ACETAMINOPHEN [Percocet 1 tab PO Q6H PRN #20 tablet 04/27/18 07/31/18 07/29/18 Rx 5/325 mg] Active Medications: Generic Name Dose Route Start Last Admin Trade Name Freq PRN Reason Stop Dose Admin Acetaminophen 650 mg 08/01/18 15:20 Tylenol PO Q4H PRN Pain MILD(1-3)/Fever >100.5/MIRAMONTES Aspirin 81 mg 07/30/18 10:00 08/01/18 09:45 Halfprin Ec PO 81 mg QDAY SHANTELLE Administration Atorvastatin Calcium 10 mg 08/01/18 15:30 08/01/18 17:47 Lipitor PO 10 mg DAILY SHANTELLE Administration Carvedilol 6.25 mg 07/30/18 10:00 08/01/18 23:12 Coreg PO 6.25 mg BID SHANTELLE Administration Clopidogrel Bisulfate 75 mg 07/30/18 10:00 08/01/18 09:45 Plavix PO 75 mg QDAY [facility] Administration Dextrose 50 ml 07/30/18 03:14 D50w (25gm) Syringe IV PRN PRN Hypoglycemia Docusate Sodium 100 mg 07/30/18 22:00 08/01/18 23:13 Colace PO 100 mg BID SHANTELLE Administration Ferrous Sulfate 325 mg 08/01/18 16:00 08/01/18 17:46 Feosol PO 325 mg DAILY SHANTELLE Administration Furosemide 80 mg 07/30/18 18:00 08/02/18 06:06 Lasix IV 80 mg 0600,1800 [facility] Administration Gabapentin 100 mg 08/01/18 16:00 08/02/18 06:06 Neurontin PO 100 mg Q8HR [facility] Administration Heparin Sodium (Porcine) 5,000 unit 07/31/18 22:00 08/01/18 23:13 Heparin SUB-Q 5,000 unit Q12HR SHANTELLE Administration Hydralazine HCl 5 mg 07/30/18 03:15 07/31/18 16:04 Apresoline IV 5 mg Q6H PRN Administration Hypertension Hydralazine HCl 25 mg 08/02/18 09:30 Apresoline PO Q8HR [facility] Insulin Human Lispro 0 unit 07/30/18 07:30 08/01/18 23:13 Humalog SUB-Q 3 unit ACHS [facility] Administration Protocol Metolazone 2.5 mg 08/01/18 10:00 08/01/18 09:45 Zaroxolyn PO 2.5 mg QDAY [facility] Administration Miscellaneous Medication 1 each 08/02/18 10:00 Mv-Mins/Folic Acid/Guarana/Caf [One Daily Tablet] PO DAILY [facility] Nitroglycerin 0.4 mg 07/30/18 10:47 Nitrostat SL .Q5MIN PRN Chest Pain Ondansetron HCl 4 mg 07/30/18 10:47 Zofran IV Q8H PRN Nausea And Vomiting Potassium Chloride 40 meq 08/02/18 09:00 K-Dur PO 08/02/18 15:01 Q6H SHANTELLE Sodium Chloride 10 ml 07/30/18 22:00 08/01/18 23:14 Sodium Chloride Flush Syringe 10 Ml IV 10 ml BID SHANTELLE Administration Sodium Chloride 10 ml 07/30/18 10:47 08/01/18 05:42 Sodium Chloride Flush Syringe 10 Ml IV 10 ml PRN PRN Administration LINE FLUSH
[2018-08-02] MEDS ORDERED: [UNRECOGNIZED DRUG - OTHER] PO SCH (10:00)
[2018-08-02] MEDS ORDERED: CAF PO SCH (10:00)
[2018-08-02] MEDS ORDERED: MV MINS PO SCH (10:00)
[2018-08-02] MEDS ORDERED: FOLIC ACID PO SCH (10:00)
[2018-08-02] MEDS: COREG PO SCH ×2 (10:02→21:58)
[2018-08-02] MEDS: COLACE PO SCH ×2 (10:02→21:58)
[2018-08-02] MEDS: APRESOLINE PO SCH ×3 (10:02→21:58)
[2018-08-02] MEDS: PLAVIX PO SCH (10:02)
[2018-08-02] MEDS: HALFPRIN EC PO SCH (10:03)
[2018-08-02] MEDS: ZAROXOLYN PO SCH (10:03)
[2018-08-02] MEDS: K-DUR PO SCH ×2 (10:03→15:58)
[2018-08-02] MEDS: FEOSOL PO SCH (10:03)
[2018-08-02] MEDS: HEPARIN SUB-Q SCH ×2 (10:03→21:58)
[2018-08-02] MEDS: SODIUM CHLORIDE FLUSH SYRINGE 10 ML IV SCH ×2 (10:12→21:59)
--- NOTE | 2018-08-02 10:23 | Progress Note ---
Addendum entered and electronically signed by MANDI HADLEY MD 08/02/18 17:29: Patient has a dilated cardiomyopathy, systolic left ventricular dysfunction, eje ction fraction 20-25%, clinically stable on medical therapy. Due to multiple comorbidities including anemia with a hematocrit of 26, chronic kidney disease with a creatinine of 2.2, and chronic bilateral heel ulcers, is not a candidate for aggressive and invasive cardiac evaluation and therapies. Original Note: Assessment and Plan Acute CHF exacerbataion Chronic renal failure PVD on plavix as an outpatient Dilated Cardiomyopathy thallium stress test showed normal perfusion 06/2017. mild dilated cardiomyopathy with ejection fraction 45-50% by an echocardiogram 06/2017. a repeat echocardiogram this presentation reports a decreased LV systolic function, ejection fraction 20-25%. Diabetes with lower extremity heel ulcers. Hypertension Recommendations: Invasive assessment is contraindicated due to the patient's chronic kidney disease. Continue medical therapy for systolic heart failure as tolerated. Subjective Date of service: 08/02/18 Interval history: Patient is resting in bed comfortably. Reports his breathing is better. Objective Vital Signs Temp Pulse Resp BP Pulse Ox 08/02/18 10:02 63 178/92 08/02/18 08:10 98.6 F 63 20 178/92 97 08/02/18 04:00 71 08/02/18 03:29 98.5 F 70 18 166/95 100 08/01/18 23:12 71 163/94 08/01/18 23:11 98.5 F 73 16 163/94 96 08/01/18 20:08 71 188/108 97 08/01/18 19:00 98.7 F 16 98 08/01/18 18:13 98.5 F 70 16 156/87 97 08/01/18 16:00 69 08/01/18 12:14 98.5 F 71 16 154/94 98 - Physical Examination General: No Apparent Distress HEENT: Positive: PERRL Neck: Positive: trachea midline Cardiac: Positive: Reg Rate and Rhythm Lungs: Positive: Decreased Breath Sounds Extremities: Present: +1 Edema - Labs and Meds Comprehensive Metabolic Panel 08/02/18 Range/Units 04:40 Sodium 141 (137-145) mmol/L Potassium 3.0 L D (3.6-5.0) mmol/L Chloride 102.8 (98-107) mmol/L Carbon Dioxide 27 (22-30) mmol/L BUN 25 H (9-20) mg/dL Creatinine 2.2 H (0.8-1.5) mg/dL Glucose 77 (75-100) mg/dL Calcium 7.9 L (8.4-10.2) mg/dL
[2018-08-02] MEDS: APRESOLINE IV PRN (12:08)
[2018-08-02 12:46] LABS: Bilirubin,Urine NEG (Negative); Blood,Urine SM (Negative); Color,Urine Straw (Yellow); Urobilinogen,Urine < 2.0 mg/dL (<2.0)
[2018-08-02 12:59] LABS: Creatinine,Urine 24.5 mg/dL (0.1-20.0); Protein/Creatinine Ratio,Urine 5.55
--- NOTE | 2018-08-02 15:36 | Progress Note ---
Assessment and Plan Assessment and plan: Patient is a 67 year old male with past medical hx of CHF, pvd, DM, ckd, and chronic bilateral lower ext wound currently undergoing hyperbaric treatment. The patient presents to the hospital with complaints of worsening shortness of breath and swelling in the left hand and bilateral lower for 3 days. Per patient he denies chest pain, nausea and vomiting. He was diagnosed with CHF exacerbation, acute on CKD. He is on Lasix, Coreg is getting better. Possible dc tomorrow if BP controlled Acute on chronic sytolic congestive heart failure exacerbation Cardiomyopathy HTN DANIELLE on chronic Kidney disease secondary to vasomotor nephropathy. Hypokalemia Anemia DM with Hypoglycemia Plan: Admitted to tele Cardiology following Nephrology following CHF protocol DM management protocol with sliding scale DVT/GI prophylaxis poss dc tomorrow if BP controlled History Interval history: Less shortness of breath No chest pain Hospitalist Physical - Physical exam Narrative exam: GEN: Not in acute distress, HEENT: Normocephalic, atraumatic, Neck: supple, No JVD Lungs: Clear to auscultation, no wheeze Heart:S1 and S2 regular, no murmurs, rubs or gallop, Abd:soft, non tender, non distended, normal bowel sounds Ext: Bilateral edema, chronic changes, no clubbing or cyanosis Neuro: Awake,alert, oriented x 3, No focal signs - Constitutional Vitals: Temp Pulse Resp BP Pulse Ox 98.6 F 67 20 176/99 97 08/02/18 08:10 08/02/18 12:08 08/02/18 08:10 08/02/18 12:08 08/02/18 08:10 Results - Labs CBC & Chem 7: 07/31/18 03:44 08/02/18 04:40 Labs: Laboratory Last Values WBC 4.8 K/mm3 (4.5-11.0) 07/31/18 03:44 RBC 3.11 M/mm3 (3.65-5.03) L 07/31/18 03:44 Hgb 8.3 gm/dl (11.8-15.2) L 07/31/18 03:44 Hct 25.2 % (35.5-45.6) L 07/31/18 03:44 MCV 81 fl (84-94) L 07/31/18 03:44 MCH 27 pg (28-32) L 07/31/18 03:44 MCHC 33 % (32-34) 07/31/18 03:44 RDW 20.6 % (13.2-15.2) H 07/31/18 03:44 Plt Count 303 K/mm3 (140-440) 07/31/18 03:44 Cobb % (Auto) Attache 07/31/18 03:44 Add Manual Diff Complete 07/31/18 03:44 Total Counted 100 07/31/18 03:44 Seg Neuts % (Manual) 65.0 % (40.0-70.0) 07/31/18 03:44 Band Neutrophils % 1.0 % 07/31/18 03:44 Lymphocytes % (Manual) 23.0 % (13.4-35.0) 07/31/18 03:44 Reactive Lymphs % (Man) 0 % 07/31/18 03:44 Monocytes % (Manual) 10.0 % (0.0-7.3) H 07/31/18 03:44 Eosinophils % (Manual) 1.0 % (0.0-4.3) 07/31/18 03:44 Basophils % (Manual) 0 % (0.0-1.8) 07/31/18 03:44 Metamyelocytes % 0 % 07/31/18 03:44 Myelocytes % 0 % 07/31/18 03:44 Promyelocytes % 0 % 07/31/18 03:44 Blast Cells % 0 % 07/31/18 03:44 Nucleated RBC % Not Reportable 07/31/18 03:44 Seg Neutrophils # Man 3.1 K/mm3 (1.8-7.7) 07/31/18 03:44 Band Neutrophils # 0.0 K/mm3 07/31/18 03:44 Lymphocytes # (Manual) 1.1 K/mm3 (1.2-5.4) L 07/31/18 03:44 Abs React Lymphs (Man) 0.0 K/mm3 07/31/18 03:44 Monocytes # (Manual) 0.5 K/mm3 (0.0-0.8) 07/31/18 03:44 Eosinophils # (Manual) 0.0 K/mm3 (0.0-0.4) 07/31/18 03:44 Basophils # (Manual) 0.0 K/mm3 (0.0-0.1) 07/31/18 03:44 Metamyelocytes # 0.0 K/mm3 07/31/18 03:44 Myelocytes # 0.0 K/mm3 07/31/18 03:44 Promyelocytes # 0.0 K/mm3 07/31/18 03:44 Blast Cells # 0.0 K/mm3 07/31/18 03:44 WBC Morphology Not Reportable 07/31/18 03:44 Hypersegmented Neuts Not Reportable 07/31/18 03:44 Hyposegmented Neuts Not Reportable 07/31/18 03:44 Hypogranular Neuts Not Reportable 07/31/18 03:44 Smudge Cells Not Reportable 07/31/18 03:44 Toxic Granulation Not Reportable 07/31/18 03:44 Toxic Vacuolation Not Reportable 07/31/18 03:44 Dohle Bodies Not Reportable 07/31/18 03:44 Pelger-Huet Anomaly Not Reportable 07/31/18 03:44 Juan Diego Rods Not Reportable 07/31/18 03:44 Platelet Estimate Consistent w auto 07/31/18 03:44 Clumped Platelets Not Reportable 07/31/18 03:44 Plt Clumps, EDTA Not Reportable 07/31/18 03:44 Large Platelets Not Reportable 07/31/18 03:44 Giant Platelets Not Reportable 07/31/18 03:44 Platelet Satelliting Not Reportable 07/31/18 03:44 Plt Morphology Comment Not Reportable 07/31/18 03:44 RBC Morphology Not Reportable 07/31/18 03:44 Dimorphic RBCs Not Reportable 07/31/18 03:44 Polychromasia Not Reportable 07/31/18 03:44 Hypochromasia Not Reportable 07/31/18 03:44 Poikilocytosis 1+ 07/31/18 03:44 Anisocytosis 2+ 07/31/18 03:44 Microcytosis Not Reportable 07/31/18 03:44 Macrocytosis Not Reportable 07/31/18 03:44 Spherocytes Not Reportable 07/31/18 03:44 Pappenheimer Bodies Not Reportable 07/31/18 03:44 Sickle Cells Not Reportable 07/31/18 03:44 Target Cells Not Reportable 07/31/18 03:44 Tear Drop Cells Not Reportable 07/31/18 03:44 Ovalocytes Not Reportable 07/31/18 03:44 Helmet Cells Not Reportable 07/31/18 03:44 [place] Bodies Not Reportable 07/31/18 03:44 [place] Rings Not Reportable 07/31/18 03:44 Micheal Cells Not Reportable 07/31/18 03:44 Bite Cells Not Reportable 07/31/18 03:44 Crenated Cell Not Reportable 07/31/18 03:44 Elliptocytes 1+ 07/31/18 03:44 Acanthocytes (Spur) Not Reportable 07/31/18 03:44 Rouleaux Not Reportable 07/31/18 03:44 Hemoglobin C Crystals Not Reportable 07/31/18 03:44 Schistocytes Not Reportable 07/31/18 03:44 Malaria parasites Not Reportable 07/31/18 03:44 Omer Bodies Not Reportable 07/31/18 03:44 Hem Pathologist Commnt No 07/31/18 03:44 PT 15.4 Sec. (12.2-14.9) H 07/30/18 00:05 INR 1.18 (0.87-1.13) H 07/30/18 00:05 APTT 33.9 Sec. (24.2-36.6) 07/30/18 00:05 Sodium 141 mmol/L (137-145) 08/02/18 04:40 Potassium 3.0 mmol/L (3.6-5.0) L D 08/02/18 04:40 Chloride 102.8 mmol/L (98-107) 08/02/18 04:40 Carbon Dioxide 27 mmol/L (22-30) 08/02/18 04:40 Anion Gap 14 mmol/L 08/02/18 04:40 BUN 25 mg/dL (9-20) H 08/02/18 04:40 Creatinine 2.2 mg/dL (0.8-1.5) H 08/02/18 04:40 Estimated GFR 36 ml/min 08/02/18 04:40 BUN/Creatinine Ratio 11 % 08/02/18 04:40 Glucose 77 mg/dL (75-100) 08/02/18 04:40 POC Glucose 150 (70-105) H 08/02/18 11:28 Calcium 7.9 mg/dL (8.4-10.2) L 08/02/18 04:40 Magnesium 2.00 mg/dL (1.7-2.3) 07/31/18 03:44 Total Bilirubin 0.40 mg/dL (0.1-1.2) 07/30/18 10:15 AST 14 units/L (5-40) 07/30/18 10:15 ALT 8 units/L (7-56) 07/30/18 10:15 Alkaline Phosphatase 90 units/L (35-129) 07/30/18 10:15 Total Creatine Kinase 113 units/L (55-170) 07/30/18 10:15 CK-MB (CK-2) 2.2 ng/mL (0.0-4.0) 07/30/18 10:15 CK-MB (CK-2) Rel Index 1.9 (0-4) 07/30/18 10:15 Troponin T 0.040 ng/mL (0.00-0.029) H 07/30/18 10:15 NT-Pro-B Natriuret Pep 03718 pg/mL (0-900) H 07/29/18 22:30 Total Protein 6.7 g/dL (6.3-8.2) 07/30/18 10:15 Albumin 2.5 g/dL (3.9-5) L 07/30/18 10:15 Albumin/Globulin Ratio 0.6 % 07/30/18 10:15 Triglycerides 65 mg/dL (2-149) 07/30/18 00:05 Cholesterol 118 mg/dL (50-199) 07/30/18 00:05 LDL Cholesterol Direct 63 mg/dL (50-130) 07/30/18 00:05 HDL Cholesterol 54 mg/dL (40-59) 07/30/18 00:05 Cholesterol/HDL Ratio 2.18 % 07/30/18 00:05 Urine Color Straw (Yellow) 08/02/18 12:28 Urine Turbidity Clear (Clear) 08/02/18 12:28 Urine pH 6.0 (5.0-7.0) 08/02/18 12:28 Ur Specific Graham 1.005 (1.003-1.030) 08/02/18 12:28 Urine Protein 100 mg/dl mg/dL (Negative) 08/02/18 12:28 Urine Glucose (UA) Neg mg/dL (Negative) 08/02/18 12:28 Urine Ketones Neg mg/dL (Negative) 08/02/18 12:28 Urine Blood Sm (Negative) 08/02/18 12:28 Urine Nitrite Neg (Negative) 08/02/18 12:28 Urine Bilirubin Neg (Negative) 08/02/18 12:28 Urine Urobilinogen < 2.0 mg/dL (<2.0) 08/02/18 12:28 Ur Leukocyte Esterase Neg (Negative) 08/02/18 12:28 Urine WBC (Auto) 1.0 /HPF (0.0-6.0) 08/02/18 12:28 Urine RBC (Auto) 4.0 /HPF (0.0-6.0) 08/02/18 12:28 U Epithel Cells (Auto) < 1.0 /HPF (0-13.0) 08/02/18 12:28 Urine Creatinine 24.5 mg/dL (0.1-20.0) H 08/02/18 12:28 Protein/Creatinin Ratio 5.55 08/02/18 12:28 Urine Sodium 127 mmol/L 08/02/18 12:28 Urine Total Protein 136 mg/dL (5-11.8) H 08/02/18 12:28
[2018-08-03 06:23] LABS: Calcium 7.9 mg/dL (8.4-10.2)
[2018-08-03] MEDS: LASIX IV SCH ×2 (07:00→17:12)
[2018-08-03] MEDS: APRESOLINE PO SCH ×3 (07:00→21:31)
[2018-08-03] MEDS: NEURONTIN PO SCH ×3 (07:00→21:31)
[2018-08-03] MEDS: HumaLOG SUB-Q SCH ×4 (07:30→21:32)
--- NOTE | 2018-08-03 08:13 | Progress Note ---
Assessment and Plan 1. Acute kidney injury: DANIELLE superimposed on CKD stage 3 in the setting of volume overload. Renal function is fairly stable. Monitor. 2. FEN: Diuresing well on IV Lasix and PO Metolazone. Replete K. Monitor. 3. Volume overload: On IV Lasix and PO Metolazone Strict I & O. 4. H/o CHF. 5. DM-2. 6. HTN. Subjective Date of service: 08/03/18 Interval history: Patient was seen and examined at the bedside. Doing ok. Objective - Vital Signs Vital signs: Vital Signs - 12hr 08/02/18 08/03/18 08/03/18 22:58 04:00 04:11 Temperature 98.3 F 98.5 F Pulse Rate 67 71 71 Respiratory 18 18 Rate Blood Pressure 165/96 146/82 O2 Sat by Pulse 97 98 Oximetry 08/03/18 07:56 Temperature 98.4 F Pulse Rate 67 Respiratory 20 Rate Blood Pressure 171/93 O2 Sat by Pulse 96 Oximetry - General Appearance General appearance: well-developed, well-nourished, appears stated age, other (not in distress) EENT: ATNC, PERRL, mucous membranes moist, hearing intact, vision intact Neck: supple Respiratory: Present: Clear to Ascultation Cardiology: regular, S1S2, no murmurs Gastrointestinal: normoactive bowel sounds, no tenderness, no distended, other (dependent edema noted) Integumentary: chronic venous stasis Neurologic: no focal deficit, no asterixis, confused, disoriented Musculoskeletal: other (2 to 3+ edema of both LEs noted) Psychiatric: cooperative - Lab 07/31/18 03:44 08/04/18 05:05 Most recent lab results Calcium 7.9 mg/dL (8.4-10.2) L 08/03/18 05:36 Magnesium 1.90 mg/dL (1.7-2.3) 08/03/18 05:36 Urine Creatinine 24.5 mg/dL (0.1-20.0) H 08/02/18 12:28 Urine Sodium 127 mmol/L 08/02/18 12:28 Urine Total Protein 136 mg/dL (5-11.8) H 08/02/18 12:28 Medications & Allergies - Medications Allergies/Adverse Reactions: Allergies No Known Allergies Allergy (Verified 07/29/18 19:52) Home Medications: Home Medications Medication Instructions Recorded Confirmed Last Taken Type Mv-Mins/Folic Acid/Guarana/Caf 1 each PO DAILY 10/26/17 07/31/18 07/29/18 History [One Daily Tablet] Acetaminophen [Acetaminophen TAB] 650 mg PO Q4H PRN tablet 04/27/18 07/31/18 Unknown Rx Aspirin EC [Aspirin Enteric Coated 81 mg PO QDAY #30 tablet 04/27/18 07/31/18 07/29/18 Rx TAB] AtorvaSTATin [Lipitor] 10 mg PO DAILY #30 tablet 04/27/18 07/31/18 07/29/18 Rx Carvedilol [Coreg] 6.25 mg PO BID #60 tablet 04/27/18 07/31/18 07/29/18 Rx Clopidogrel [Plavix] 75 mg PO QDAY #30 tablet 04/27/18 07/31/18 07/29/18 Rx Ferrous Sulfate [Iron] 325 mg PO DAILY #30 tablet 04/27/18 07/31/18 07/29/18 Rx Gabapentin [Neurontin] 100 mg PO Q8HR #90 capsule 04/27/18 07/31/18 07/29/18 Rx Furosemide [Lasix TAB] 80 mg PO QDAY 30 Days tablet 08/03/18 Unknown Rx Lisinopril [Zestril TAB] 40 mg PO QDAY #30 tablet 08/03/18 Unknown Rx Potassium Chloride [K-Dur] 40 meq PO BID 30 Days tab 08/03/18 Unknown Rx hydrALAZINE [Apresoline TAB] 50 mg PO Q8HR 30 Days #30 tablet 08/03/18 Unknown Rx metOLazone [Zaroxolyn] 2.5 mg PO QDAY #30 tablet 08/03/18 Unknown Rx Active Medications: Generic Name Dose Route Start Last Admin Trade Name Freq PRN Reason Stop Dose Admin Acetaminophen 650 mg 08/01/18 15:20 Tylenol PO Q4H PRN Pain MILD(1-3)/Fever >100.5/MIRAMONTES Aspirin 81 mg 07/30/18 10:00 08/02/18 10:03 Halfprin Ec PO 81 mg QDAY SHANTELLE Administration Atorvastatin Calcium 10 mg 08/01/18 15:30 08/02/18 10:01 Lipitor PO 10 mg DAILY SHANTELLE Administration Carvedilol 6.25 mg 07/30/18 10:00 08/02/18 21:58 Coreg PO 6.25 mg BID SHANTELLE Administration Clopidogrel Bisulfate 75 mg 07/30/18 10:00 08/02/18 10:02 Plavix PO 75 mg QDAY SHANTELLE Administration Dextrose 50 ml 07/30/18 03:14 D50w (25gm) Syringe IV PRN PRN Hypoglycemia Docusate Sodium 100 mg 07/30/18 22:00 08/02/18 21:58 Colace PO 100 mg BID SHANTELLE Administration Ferrous Sulfate 325 mg 08/01/18 16:00 08/02/18 10:03 Feosol PO 325 mg DAILY SHANTELLE Administration Furosemide 80 mg 07/30/18 18:00 08/03/18 07:00 Lasix IV 80 mg 0600,1800 SHANTELLE Administration Gabapentin 100 mg 08/01/18 16:00 08/03/18 07:00 Neurontin PO 100 mg Q8HR SHANTELLE Administration Heparin Sodium (Porcine) 5,000 unit 07/31/18 22:00 08/02/18 21:58 Heparin SUB-Q 5,000 unit Q12HR SHANTELLE Administration Hydralazine HCl 5 mg 07/30/18 03:15 08/02/18 12:08 Apresoline IV 5 mg Q6H PRN Administration Hypertension Hydralazine HCl 25 mg 08/02/18 09:30 08/03/18 07:00 Apresoline PO 25 mg Q8HR SHANTELLE Administration Insulin Human Lispro 0 unit 07/30/18 07:30 08/02/18 22:02 Humalog SUB-Q Not Given ACHS [facility] Protocol Metolazone 2.5 mg 08/01/18 10:00 08/02/18 10:03 Zaroxolyn PO 2.5 mg QDAY SHANTELLE Administration Nitroglycerin 0.4 mg 07/30/18 10:47 Nitrostat SL .Q5MIN PRN Chest Pain Ondansetron HCl 4 mg 07/30/18 10:47 Zofran IV Q8H PRN Nausea And Vomiting Sodium Chloride 10 ml 07/30/18 22:00 08/02/18 21:59 Sodium Chloride Flush Syringe 10 Ml IV 10 ml BID SHANTELLE Administration Sodium Chloride 10 ml 07/30/18 10:47 08/01/18 05:42 Sodium Chloride Flush Syringe 10 Ml IV 10 ml PRN PRN Administration LINE FLUSH
[2018-08-03] MEDS: COREG PO SCH ×2 (10:40→21:31)
[2018-08-03] MEDS: FEOSOL PO SCH (10:40)
[2018-08-03] MEDS: PLAVIX PO SCH (10:40)
[2018-08-03] MEDS: HALFPRIN EC PO SCH (10:40)
[2018-08-03] MEDS: COLACE PO SCH ×2 (10:40→21:31)
[2018-08-03] MEDS: ZAROXOLYN PO SCH (10:40)
[2018-08-03] MEDS: HEPARIN SUB-Q SCH ×2 (10:41→21:31)
--- NOTE | 2018-08-03 11:09 | Progress Note ---
Addendum entered and electronically signed by MANDI HADLEY MD 08/03/18 14:08: Continue conservative cardiac medical therapy as previously outlined for chronic systolic heart failure. Original Note: Assessment and Plan Acute CHF exacerbataion Chronic renal failure PVD on plavix as an outpatient Anemia Dilated Cardiomyopathy thallium stress test showed normal perfusion 06/2017. mild dilated cardiomyopathy with ejection fraction 45-50% by an echocardiogram 06/2017. a repeat echocardiogram this presentation reports a decreased LV systolic function, ejection fraction 20-25%. Diabetes with bilateral lower extremity heel ulcers. Hypertension Recommendations: Invasive cardiac assessment is contraindicated due to the patient's chronic kidney disease, anemia and chronic bilateral heel ulcers. Stable cardiac graham. Continue medical therapy for systolic heart failure as tolerated. Subjective Date of service: 08/03/18 Interval history: No acute cardiac changes overnight. Stable sinus rhythm on tele. Objective Vital Signs Temp Pulse Resp BP BP Pulse Ox 08/03/18 10:40 67 171/93 08/03/18 07:56 98.4 F 67 20 171/93 96 08/03/18 04:11 98.5 F 71 18 146/82 98 08/03/18 04:00 71 08/02/18 22:58 98.3 F 67 18 165/96 97 08/02/18 19:55 98.0 F 68 16 141/86 96 08/02/18 16:41 98.6 F 64 20 174/86 95 08/02/18 16:00 63 08/02/18 15:59 78 166/74 08/02/18 12:08 67 176/99 - Physical Examination General: No Apparent Distress HEENT: Positive: PERRL Neck: Positive: trachea midline Cardiac: Positive: Reg Rate and Rhythm Lungs: Positive: Decreased Breath Sounds Neuro: Positive: Grossly Intact Skin: Positive: Wound (bilateral heel) Extremities: Present: +1 Edema - Labs and Meds Comprehensive Metabolic Panel 08/03/18 Range/Units 05:36 Sodium 140 (137-145) mmol/L Potassium 3.3 L (3.6-5.0) mmol/L Chloride 101.7 (98-107) mmol/L Carbon Dioxide 27 (22-30) mmol/L BUN 28 H (9-20) mg/dL Creatinine 2.4 H (0.8-1.5) mg/dL Glucose 147 H (75-100) mg/dL Calcium 7.9 L (8.4-10.2) mg/dL
[2018-08-03] MEDS: SODIUM CHLORIDE FLUSH SYRINGE 10 ML IV SCH ×2 (12:14→21:32)
[2018-08-03] MEDS: K-DUR PO SCH ×2 (12:14→17:12)
--- NOTE | 2018-08-03 13:42 | Discharge Summary ---
Providers - Providers Date of Admission: 07/30/18 03:13 Attending physician: LESA CHRISTIAN MD 07/30/18 08:24 Consult to Physician [CONS] Routine Comment: Consulting Provider: MANDI HADLEY Physician Instructions: Reason For Exam: CHF 07/30/18 09:20 Consult to Physician [CONS] Routine Comment: Consulting Provider: NELSY SHORE Physician Instructions: Reason For Exam: DANIELLE 07/30/18 10:48 Consult to Wound/ET Nurse [CONS] Routine Reason For Exam: wound eval Primary care physician: [facility] Hospitalization Condition: Stable Hospital course: Patient is a 67 year old male with past medical hx of CHF, pvd, DM, ckd, and chronic bilateral lower ext wound currently undergoing hyperbaric treatment. He pw fluid overload, he was diuresed and his BP meds were optimized, his K was replaced, his meds were optimized for his chronic conditions. Nephrotoxins were avoided given ckd Diagnosis Acute on chronic sytolic congestive heart failure exacerbation Cardiomyopathy HTN DANIELLE on chronic Kidney disease secondary to vasomotor nephropathy. Hypokalemia Anemia DM with Hypoglycemia Disposition: DC-01 TO HOME OR SELFCARE Time spent for discharge: 33 minutes Core Measure Documentation - Palliative Care Palliative Care/ Comfort Measures: Not Applicable - Core Measures Any of the following diagnoses?: heart failure - Heart Failure Discharge Requirements CAMILA/ARB for LVSD if EF <40%: Yes Beta jarod at discharge: Yes Exam - Constitutional Vitals: Temp Pulse Resp BP Pulse Ox 98.4 F 67 20 171/93 96 08/03/18 07:56 08/03/18 10:40 08/03/18 07:56 08/03/18 10:40 08/03/18 07:56 General appearance: Present: no acute distress, well-nourished - EENT Eyes: Present: PERRL ENT: hearing intact, clear oral mucosa - Neck Neck: Present: supple, normal ROM - Respiratory Respiratory effort: normal Respiratory: bilateral: CTA - Cardiovascular Heart Sounds: Present: S1 & S2. Absent: rub, click - Extremities Extremities: pulses symmetrical, No edema Peripheral Pulses: within normal limits - Abdominal General gastrointestinal: Present: soft, non-tender, non-distended, normal bowel sounds Male genitourinary: Present: normal - Integumentary Integumentary: Present: clear, warm, dry - Musculoskeletal Musculoskeletal: gait normal, strength equal bilaterally - Psychiatric Psychiatric: appropriate mood/affect, intact judgment & insight - Neurologic Neurologic: CNII-XII intact, moves all extremities Plan Follow up with: PRIMARY CARE,MD [Primary Care Provider] - 3-5 Days Prescriptions: Furosemide [Lasix TAB] 80 mg PO QDAY 30 Days tablet hydrALAZINE [Apresoline TAB] 50 mg PO Q8HR 30 Days #30 tablet Lisinopril [Zestril TAB] 40 mg PO QDAY #30 tablet metOLazone [Zaroxolyn] 2.5 mg PO QDAY #30 tablet Potassium Chloride [K-Dur] 40 meq PO BID 30 Days tab
--- NOTE | 2018-08-03 20:23 | Progress Note ---
Assessment and Plan Assessment and plan: Patient is a 67 year old male with past medical hx of CHF, pvd, DM, ckd, and chronic bilateral lower ext wound currently undergoing hyperbaric treatment. The patient presents to the hospital with complaints of worsening shortness of breath and swelling in the left hand and bilateral lower for 3 days. Per patient he denies chest pain, nausea and vomiting. He was diagnosed with CHF exacerbation, acute on CKD. He is on Lasix, Coreg is getting better. Possible dc tomorrow if BP controlled Acute on chronic sytolic congestive heart failure exacerbation Cardiomyopathy HTN DANIELLE on chronic Kidney disease secondary to vasomotor nephropathy. Hypokalemia Anemia DM with Hypoglycemia Plan: Admitted to tele Cardiology following Nephrology following CHF protocol DM management protocol with sliding scale DVT/GI prophylaxis poss dc tomorrow if BP controlled Unable to contact [facility] to schedule DC, if we do not hear back by tomorrow am, will call police to do a welness check History Interval history: Review of systems Constitutional: No fevers, no malaise, no joint pains CVS: No chest pain, no orthopnea, no dyspnea on exertion, no pedal edema GI: No abdominal pain, no diarrhea, no vomiting, no constipation Respiratory: No shortness of breath, no wheezing, no coughing Hospitalist Physical - Physical exam Narrative exam: General.: Appears well, no distress, nontoxic HEENT: Moist mucous membranes, extraocular muscles intact, no lymphadenopathy Neck: supple Cardiac: S1-S2 heard Lungs: clear to auscultation bilaterally Abdomen: soft , nontender, nondistended, bowel sounds positive Extremities: no edema clubbing or cyanosis Skin: no rash or lesions Neurologic: no gross focal deficits Psych: appropriate behavior, appropriate mood, corporative, judgment intact - Constitutional Vitals: Temp Pulse Resp BP Pulse Ox 98.0 F 71 20 166/87 99 08/03/18 15:50 08/03/18 17:19 08/03/18 15:50 08/03/18 17:19 08/03/18 15:50 General appearance: Present: no acute distress, well-nourished Results - Labs CBC & Chem 7: 07/31/18 03:44 08/04/18 05:05 Labs: Laboratory Last Values WBC 4.8 K/mm3 (4.5-11.0) 07/31/18 03:44 RBC 3.11 M/mm3 (3.65-5.03) L 07/31/18 03:44 Hgb 8.3 gm/dl (11.8-15.2) L 07/31/18 03:44 Hct 25.2 % (35.5-45.6) L 07/31/18 03:44 MCV 81 fl (84-94) L 07/31/18 03:44 MCH 27 pg (28-32) L 07/31/18 03:44 MCHC 33 % (32-34) 07/31/18 03:44 RDW 20.6 % (13.2-15.2) H 07/31/18 03:44 Plt Count 303 K/mm3 (140-440) 07/31/18 03:44 [place] % (Auto) Cupola Tapper Helper 07/31/18 03:44 Add Manual Diff Complete 07/31/18 03:44 Total Counted 100 07/31/18 03:44 Seg Neuts % (Manual) 65.0 % (40.0-70.0) 07/31/18 03:44 Band Neutrophils % 1.0 % 07/31/18 03:44 Lymphocytes % (Manual) 23.0 % (13.4-35.0) 07/31/18 03:44 Reactive Lymphs % (Man) 0 % 07/31/18 03:44 Monocytes % (Manual) 10.0 % (0.0-7.3) H 07/31/18 03:44 Eosinophils % (Manual) 1.0 % (0.0-4.3) 07/31/18 03:44 Basophils % (Manual) 0 % (0.0-1.8) 07/31/18 03:44 Metamyelocytes % 0 % 07/31/18 03:44 Myelocytes % 0 % 07/31/18 03:44 Promyelocytes % 0 % 07/31/18 03:44 Blast Cells % 0 % 07/31/18 03:44 Nucleated RBC % Not Reportable 07/31/18 03:44 Seg Neutrophils # Man 3.1 K/mm3 (1.8-7.7) 07/31/18 03:44 Band Neutrophils # 0.0 K/mm3 07/31/18 03:44 Lymphocytes # (Manual) 1.1 K/mm3 (1.2-5.4) L 07/31/18 03:44 Abs React Lymphs (Man) 0.0 K/mm3 07/31/18 03:44 Monocytes # (Manual) 0.5 K/mm3 (0.0-0.8) 07/31/18 03:44 Eosinophils # (Manual) 0.0 K/mm3 (0.0-0.4) 07/31/18 03:44 Basophils # (Manual) 0.0 K/mm3 (0.0-0.1) 07/31/18 03:44 Metamyelocytes # 0.0 K/mm3 07/31/18 03:44 Myelocytes # 0.0 K/mm3 07/31/18 03:44 Promyelocytes # 0.0 K/mm3 07/31/18 03:44 Blast Cells # 0.0 K/mm3 07/31/18 03:44 WBC Morphology Not Reportable 07/31/18 03:44 Hypersegmented Neuts Not Reportable 07/31/18 03:44 Hyposegmented Neuts Not Reportable 07/31/18 03:44 Hypogranular Neuts Not Reportable 07/31/18 03:44 Smudge Cells Not Reportable 07/31/18 03:44 Toxic Granulation Not Reportable 07/31/18 03:44 Toxic Vacuolation Not Reportable 07/31/18 03:44 Dohle Bodies Not Reportable 07/31/18 03:44 Pelger-Huet Anomaly Not Reportable 07/31/18 03:44 Juan Diego Rods Not Reportable 07/31/18 03:44 Platelet Estimate Consistent w auto 07/31/18 03:44 Clumped Platelets Not Reportable 07/31/18 03:44 Plt Clumps, EDTA Not Reportable 07/31/18 03:44 Large Platelets Not Reportable 07/31/18 03:44 Giant Platelets Not Reportable 07/31/18 03:44 Platelet Satelliting Not Reportable 07/31/18 03:44 Plt Morphology Comment Not Reportable 07/31/18 03:44 RBC Morphology Not Reportable 07/31/18 03:44 Dimorphic RBCs Not Reportable 07/31/18 03:44 Polychromasia Not Reportable 07/31/18 03:44 Hypochromasia Not Reportable 07/31/18 03:44 Poikilocytosis 1+ 07/31/18 03:44 Anisocytosis 2+ 01/05/19 03:44 Microcytosis Not Reportable 07/31/18 03:44 Macrocytosis Not Reportable 07/31/18 03:44 Spherocytes Not Reportable 07/31/18 03:44 Pappenheimer Bodies Not Reportable 07/31/18 03:44 Sickle Cells Not Reportable 07/31/18 03:44 Target Cells Not Reportable 07/31/18 03:44 Tear Drop Cells Not Reportable 07/31/18 03:44 Ovalocytes Not Reportable 07/31/18 03:44 Helmet Cells Not Reportable 07/31/18 03:44 Frost-Shallotte Bodies Not Reportable 07/31/18 03:44 [place] Rings Not Reportable 07/31/18 03:44 Micheal Cells Not Reportable 07/31/18 03:44 Bite Cells Not Reportable 07/31/18 03:44 Crenated Cell Not Reportable 07/31/18 03:44 Elliptocytes 1+ 07/31/18 03:44 Acanthocytes (Spur) Not Reportable 07/31/18 03:44 Rouleaux Not Reportable 07/31/18 03:44 Hemoglobin C Crystals Not Reportable 07/31/18 03:44 Schistocytes Not Reportable 07/31/18 03:44 Malaria parasites Not Reportable 07/31/18 03:44 Omer Bodies Not Reportable 07/31/18 03:44 Hem Pathologist Commnt No 07/31/18 03:44 PT 15.4 Sec. (12.2-14.9) H 07/30/18 00:05 INR 1.18 (0.87-1.13) H 07/30/18 00:05 APTT 33.9 Sec. (24.2-36.6) 07/30/18 00:05 Sodium 140 mmol/L (137-145) 08/03/18 05:36 Potassium 3.3 mmol/L (3.6-5.0) L 08/03/18 05:36 Chloride 101.7 mmol/L (98-107) 08/03/18 05:36 Carbon Dioxide 27 mmol/L (22-30) 08/03/18 05:36 Anion Gap 15 mmol/L 08/03/18 05:36 BUN 28 mg/dL (9-20) H 08/03/18 05:36 Creatinine 2.4 mg/dL (0.8-1.5) H 08/03/18 05:36 Estimated GFR 33 ml/min 08/03/18 05:36 BUN/Creatinine Ratio 12 % 08/03/18 05:36 Glucose 147 mg/dL (75-100) H 08/03/18 05:36 POC Glucose 78 (70-105) 08/03/18 15:51 Calcium 7.9 mg/dL (8.4-10.2) L 08/03/18 05:36 Magnesium 1.90 mg/dL (1.7-2.3) 08/03/18 05:36 Total Bilirubin 0.40 mg/dL (0.1-1.2) 07/30/18 10:15 AST 14 units/L (5-40) 07/30/18 10:15 ALT 8 units/L (7-56) 07/30/18 10:15 Alkaline Phosphatase 90 units/L (35-129) 07/30/18 10:15 Total Creatine Kinase 113 units/L (55-170) 07/30/18 10:15 CK-MB (CK-2) 2.2 ng/mL (0.0-4.0) 07/30/18 10:15 CK-MB (CK-2) Rel Index 1.9 (0-4) 07/30/18 10:15 Troponin T 0.040 ng/mL (0.00-0.029) H 07/30/18 10:15 NT-Pro-B Natriuret Pep 60708 pg/mL (0-900) H 07/29/18 22:30 Total Protein 6.7 g/dL (6.3-8.2) 07/30/18 10:15 Albumin 2.5 g/dL (3.9-5) L 07/30/18 10:15 Albumin/Globulin Ratio 0.6 % 07/30/18 10:15 Triglycerides 65 mg/dL (2-149) 07/30/18 00:05 Cholesterol 118 mg/dL (50-199) 07/30/18 00:05 LDL Cholesterol Direct 63 mg/dL (50-130) 07/30/18 00:05 HDL Cholesterol 54 mg/dL (40-59) 07/30/18 00:05 Cholesterol/HDL Ratio 2.18 % 07/30/18 00:05 Urine Color Straw (Yellow) 08/02/18 12:28 Urine Turbidity Clear (Clear) 08/02/18 12:28 Urine pH 6.0 (5.0-7.0) 08/02/18 12:28 Ur Specific [place] 1.005 (1.003-1.030) 08/02/18 12:28 Urine Protein 100 mg/dl mg/dL (Negative) 08/02/18 12:28 Urine Glucose (UA) Neg mg/dL (Negative) 08/02/18 12:28 Urine Ketones Neg mg/dL (Negative) 08/02/18 12:28 Urine Blood Sm (Negative) 08/02/18 12:28 Urine Nitrite Neg (Negative) 08/02/18 12:28 Urine Bilirubin Neg (Negative) 08/02/18 12:28 Urine Urobilinogen < 2.0 mg/dL (<2.0) 08/02/18 12:28 Ur Leukocyte Esterase Neg (Negative) 08/02/18 12:28 Urine WBC (Auto) 1.0 /HPF (0.0-6.0) 08/02/18 12:28 Urine RBC (Auto) 4.0 /HPF (0.0-6.0) 08/02/18 12:28 U Epithel Cells (Auto) < 1.0 /HPF (0-13.0) 08/02/18 12:28 Urine Creatinine 24.5 mg/dL (0.1-20.0) H 08/02/18 12:28 Protein/Creatinin Ratio 5.55 08/02/18 12:28 Urine Sodium 127 mmol/L 08/02/18 12:28 Urine Total Protein 136 mg/dL (5-11.8) H 08/02/18 12:28
[2018-08-04] MEDS: APRESOLINE PO SCH ×2 (05:31→15:01)
[2018-08-04] MEDS: LASIX IV SCH (05:32)
[2018-08-04] MEDS: NEURONTIN PO SCH ×2 (05:32→15:01)
[2018-08-04] MEDS ORDERED: K-DUR PO NR (07:29)
[2018-08-04] MEDS: HumaLOG SUB-Q SCH ×3 (07:30→12:51)
--- NOTE | 2018-08-04 08:56 | Progress Note ---
Assessment and Plan Acute CHF exacerbataion Chronic renal failure PVD on plavix as an outpatient Anemia Dilated Cardiomyopathy thallium stress test showed normal perfusion 06/2017. mild dilated cardiomyopathy with ejection fraction 45-50% by an echocardiogram 06/2017. a repeat echocardiogram this presentation reports a decreased LV systolic function, ejection fraction 20-25%. Diabetes with bilateral lower extremity heel ulcers. Hypertension Recommendations: Invasive cardiac assessment is contraindicated due to the patient's chronic kidney disease, anemia and chronic bilateral heel ulcers. Continue medical therapy for systolic heart failure as tolerated. Stable cardiac graham. Subjective Date of service: 08/04/18 Interval history: Patient has no complaints. Objective Vital Signs Temp Pulse Pulse Resp BP Pulse Ox 08/04/18 08:34 80 20 96 08/04/18 08:00 97.5 F L 76 16 162/92 99 08/04/18 05:44 97.6 F 72 20 165/90 95 08/04/18 04:00 74 08/04/18 00:30 98.4 F 71 20 161/83 91 08/03/18 20:56 98.3 F 71 18 157/94 100 08/03/18 17:19 71 166/87 08/03/18 16:00 65 08/03/18 15:50 98.0 F 71 20 166/87 99 08/03/18 11:38 98.0 F 68 20 157/86 95 08/03/18 10:40 67 171/93 - Physical Examination General: No Apparent Distress HEENT: Positive: PERRL Neck: Positive: trachea midline Cardiac: Positive: Reg Rate and Rhythm Lungs: Positive: Decreased Breath Sounds Neuro: Positive: Grossly Intact Abdomen: Positive: Active Bowel Sounds Skin: Positive: Wound (bilateral heel) Extremities: Present: +1 Edema - Labs and Meds Comprehensive Metabolic Panel 08/04/18 Range/Units 05:05 Sodium 139 (137-145) mmol/L Potassium 3.7 (3.6-5.0) mmol/L Chloride 101.3 (98-107) mmol/L Carbon Dioxide 26 (22-30) mmol/L BUN 32 H (9-20) mg/dL Creatinine 2.3 H (0.8-1.5) mg/dL Glucose 144 H (75-100) mg/dL Calcium 8.0 L (8.4-10.2) mg/dL
--- NOTE | 2018-08-04 09:24 | Progress Note ---
Assessment and Plan 1. Acute kidney injury: DANIELLE superimposed on CKD stage 3 in the setting of volume overload. Renal function is fairly stable. Monitor. 2. FEN: Diuresing well on IV Lasix and PO Metolazone. Replete K. Monitor. 3. Volume overload: On IV Lasix and PO Metolazone Strict I & O. 4. H/o CHF. 5. DM-2. 6. HTN. F/u with me in 2 weeks. Subjective Date of service: 08/04/18 Interval history: Patient was seen and examined at the bedside. Doing ok. Objective - Vital Signs Vital signs: Vital Signs - 12hr 08/04/18 08/04/18 08/04/18 00:30 04:00 05:44 Temperature 98.4 F 97.6 F Pulse Rate 71 74 72 Pulse Rate [ Apical] Respiratory 20 20 Rate Blood Pressure 161/83 165/90 O2 Sat by Pulse 91 95 Oximetry 08/04/18 08/04/18 08:00 08:34 Temperature 97.5 F L Pulse Rate 76 Pulse Rate [ 80 Apical] Respiratory 16 20 Rate Blood Pressure 162/92 O2 Sat by Pulse 99 96 Oximetry - General Appearance General appearance: well-developed, well-nourished, appears stated age, other (not in distress) EENT: ATNC, PERRL, mucous membranes moist, hearing intact, vision intact Neck: supple Respiratory: Present: Clear to Ascultation Cardiology: regular, S1S2, no murmurs Gastrointestinal: normoactive bowel sounds, no tenderness, no distended Integumentary: ulcer (b/l heel), chronic venous stasis Neurologic: no focal deficit, no asterixis, confused, disoriented Musculoskeletal: other (2 to 3+ edema of both LEs noted) - Lab 07/31/18 03:44 08/04/18 05:05 Most recent lab results Calcium 8.0 mg/dL (8.4-10.2) L 08/04/18 05:05 Magnesium 1.90 mg/dL (1.7-2.3) 08/03/18 05:36 Urine Creatinine 24.5 mg/dL (0.1-20.0) H 08/02/18 12:28 Urine Sodium 127 mmol/L 08/02/18 12:28 Urine Total Protein 136 mg/dL (5-11.8) H 08/02/18 12:28 Medications & Allergies - Medications Allergies/Adverse Reactions: Allergies No Known Allergies Allergy (Verified 07/29/18 19:52) Home Medications: Home Medications Medication Instructions Recorded Confirmed Last Taken Type Mv-Mins/Folic Acid/Guarana/Caf 1 each PO DAILY 10/26/17 07/31/18 07/29/18 History [One Daily Tablet] Acetaminophen [Acetaminophen TAB] 650 mg PO Q4H PRN tablet 04/27/18 07/31/18 Unknown Rx Aspirin EC [Aspirin Enteric Coated 81 mg PO QDAY #30 tablet 04/27/18 07/31/18 07/29/18 Rx TAB] AtorvaSTATin [Lipitor] 10 mg PO DAILY #30 tablet 04/27/18 07/31/18 07/29/18 Rx Carvedilol [Coreg] 6.25 mg PO BID #60 tablet 04/27/18 07/31/18 07/29/18 Rx Clopidogrel [Plavix] 75 mg PO QDAY #30 tablet 04/27/18 07/31/18 07/29/18 Rx Ferrous Sulfate [Iron] 325 mg PO DAILY #30 tablet 04/27/18 07/31/18 07/29/18 Rx Gabapentin [Neurontin] 100 mg PO Q8HR #90 capsule 04/27/18 07/31/18 07/29/18 Rx Furosemide [Lasix TAB] 80 mg PO QDAY 30 Days tablet 08/03/18 Unknown Rx Lisinopril [Zestril TAB] 40 mg PO QDAY #30 tablet 08/03/18 Unknown Rx Potassium Chloride [K-Dur] 40 meq PO BID 30 Days tab 08/03/18 Unknown Rx hydrALAZINE [Apresoline TAB] 50 mg PO Q8HR 30 Days #30 tablet 08/03/18 Unknown Rx metOLazone [Zaroxolyn] 2.5 mg PO QDAY #30 tablet 08/03/18 Unknown Rx Active Medications: Generic Name Dose Route Start Last Admin Trade Name Freq PRN Reason Stop Dose Admin Acetaminophen 650 mg 08/01/18 15:20 Tylenol PO Q4H PRN Pain MILD(1-3)/Fever >100.5/MIRAMONTES Aspirin 81 mg 07/30/18 10:00 08/03/18 10:40 Halfprin Ec PO 81 mg QDAY SHANTELLE Administration Atorvastatin Calcium 10 mg 08/01/18 15:30 08/03/18 10:40 Lipitor PO 10 mg DAILY SHANTELLE Administration Carvedilol 6.25 mg 07/30/18 10:00 08/03/18 21:31 Coreg PO 6.25 mg BID SHANTELLE Administration Clopidogrel Bisulfate 75 mg 07/30/18 10:00 08/03/18 10:40 Plavix PO 75 mg QDAY SHANTELLE Administration Dextrose 50 ml 07/30/18 03:14 D50w (25gm) Syringe IV PRN PRN Hypoglycemia Docusate Sodium 100 mg 07/30/18 22:00 08/03/18 21:31 Colace PO 100 mg BID SHANTELLE Administration Ferrous Sulfate 325 mg 08/01/18 16:00 08/03/18 10:40 Feosol PO 325 mg DAILY SHANTELLE Administration Furosemide 80 mg 07/30/18 18:00 08/04/18 05:32 Lasix IV 80 mg 0600,1800 SHANTELLE Administration Gabapentin 100 mg 08/01/18 16:00 08/04/18 05:32 Neurontin PO 100 mg Q8HR SHANTELLE Administration Heparin Sodium (Porcine) 5,000 unit 07/31/18 22:00 08/03/18 21:31 Heparin SUB-Q 5,000 unit Q12HR SHANTELLE Administration Hydralazine HCl 5 mg 07/30/18 03:15 08/02/18 12:08 Apresoline IV 5 mg Q6H PRN Administration Hypertension Hydralazine HCl 25 mg 08/02/18 09:30 08/04/18 05:31 Apresoline PO 25 mg Q8HR SHANTELLE Administration Insulin Human Lispro 0 unit 07/30/18 07:30 08/03/18 21:32 Humalog SUB-Q Not Given ACHS [facility] Protocol Metolazone 2.5 mg 08/01/18 10:00 08/03/18 10:40 Zaroxolyn PO 2.5 mg QDAY SHANTELLE Administration Nitroglycerin 0.4 mg 07/30/18 10:47 Nitrostat SL .Q5MIN PRN Chest Pain Ondansetron HCl 4 mg 07/30/18 10:47 Zofran IV Q8H PRN Nausea And Vomiting Potassium Chloride 40 meq 08/04/18 07:29 K-Dur PO 08/04/18 10:00 ONCE NR Sodium Chloride 10 ml 07/30/18 22:00 08/03/18 21:32 Sodium Chloride Flush Syringe 10 Ml IV 10 ml BID SHANTELLE Administration Sodium Chloride 10 ml 07/30/18 10:47 08/01/18 05:42 Sodium Chloride Flush Syringe 10 Ml IV 10 ml PRN PRN Administration LINE FLUSH
[2018-08-04] MEDS: PLAVIX PO SCH (09:39)
[2018-08-04] MEDS: ZAROXOLYN PO SCH (09:40)
[2018-08-04] MEDS: HEPARIN SUB-Q SCH (09:41)
[2018-08-04] MEDS: FEOSOL PO SCH (09:41)
[2018-08-04] MEDS: COREG PO SCH (09:42)
[2018-08-04] MEDS: COLACE PO SCH (09:43)
[2018-08-04] MEDS: SODIUM CHLORIDE FLUSH SYRINGE 10 ML IV SCH (09:43)
[2018-08-04] MEDS: HALFPRIN EC PO SCH (09:43)
[2018-08-04 14:36] VITALS: BP 139/80
== END 2018-08-04 16:09 | disposition home or self-care (01) | DRG 682 ==
LOC: ED 19:37 → MERGE 07-30 03:13 → 4A 07-30 03:13
PROVIDERS: ADMIT Internal Medicine; ATTEND Internal Medicine
PROC: 3E0234Z Introduction of Serum, Toxoid and Vaccine into Muscle, Percutaneous Approach (ICD-10-PCS; principal; 2018-07-30)
DX: N17.0 Acute kidney failure with tubular necrosis (principal); I50.23 Acute on chronic systolic (congestive) heart failure; I13.0 Hypertensive heart and chronic kidney disease with heart failure and stage 1 through stage 4 chronic kidney disease, or unspecified chronic kidney disease; I42.0 Dilated cardiomyopathy; N18.9 Chronic kidney disease, unspecified; E11.51 Type 2 diabetes mellitus with diabetic peripheral angiopathy without gangrene; E11.22 Type 2 diabetes mellitus with diabetic chronic kidney disease; E87.6 Hypokalemia; D64.9 Anemia, unspecified; E11.649 Type 2 diabetes mellitus with hypoglycemia without coma; E11.622 Type 2 diabetes mellitus with other skin ulcer; Z86.73 Personal history of transient ischemic attack (TIA), and cerebral infarction without residual deficits; Z86.718 Personal history of other venous thrombosis and embolism; Z98.42 Cataract extraction status, left eye; Z98.41 Cataract extraction status, right eye; Z79.82 Long term (current) use of aspirin; Z23 Encounter for immunization
CPT/HCPCS: 36415; 71045; 71046; 80048; 80053; 80061; 81001; 82550; 82553; 82570; 82962; 83735; 83880; 84156; 84300; 84484; 85007; 85025; 85610; 85730; 87116; 90471; 90686; 90732; 93005; 93010; 93306; G0378; A9270-GY; G0008; G0009; J0360; J1644; J1815; J1940

== ENCOUNTER 2018-08-06 11:47 | Outpatient (CLI) | payer MEDICARE ==
[2018-08-06] MEDS ORDERED: AD OINTMENT TP PRN (11:51)
[2018-08-06] MEDS ORDERED: XYLOCAINE TOPICAL 4% TP ONE (11:51)
[2018-08-06] MEDS ORDERED: SILVER NITRATE TP ONE (12:50)
== END 2018-08-06 11:48 | disposition home or self-care (01) ==
LOC: MERGE 11:47 → WOUND 11:47
PROVIDERS: ATTEND Surgery
DX: E11.621 Type 2 diabetes mellitus with foot ulcer (principal); L97.422 Non-pressure chronic ulcer of left heel and midfoot with fat layer exposed; L97.412 Non-pressure chronic ulcer of right heel and midfoot with fat layer exposed; E11.69 Type 2 diabetes mellitus with other specified complication; M86.8X7 Other osteomyelitis, ankle and foot; I11.0 Hypertensive heart disease with heart failure; I50.9 Heart failure, unspecified
CPT/HCPCS: A6250

== ENCOUNTER 2018-08-13 12:34 | Outpatient (CLI) | payer MEDICARE | END 2018-08-13 12:35 | disposition home or self-care (01) | LOC: WOUND 12:34 | CPT/HCPCS: 11042; 11045; G0463; 99215 ==

== ENCOUNTER 2018-08-27 10:25 | Outpatient (CLI) | payer MEDICARE ==
[2018-08-27] MEDS ORDERED: XYLOCAINE TOPICAL 4% TP ONE (10:51)
[2018-08-27] MEDS ORDERED: SILVER NITRATE TP ONE (10:51)
[2018-08-27] MEDS ORDERED: AD OINTMENT TP PRN (10:52)
== END 2018-08-27 10:26 | disposition home or self-care (01) ==
LOC: WOUND 10:25
PROVIDERS: ATTEND Surgery
DX: E11.621 Type 2 diabetes mellitus with foot ulcer (principal); L97.416 Non-pressure chronic ulcer of right heel and midfoot with bone involvement without evidence of necrosis; L97.422 Non-pressure chronic ulcer of left heel and midfoot with fat layer exposed; L84 Corns and callosities; E11.69 Type 2 diabetes mellitus with other specified complication; M86.8X7 Other osteomyelitis, ankle and foot; I11.0 Hypertensive heart disease with heart failure; I50.9 Heart failure, unspecified

== ENCOUNTER 2018-09-03 11:22 | Outpatient (CLI) | payer MEDICARE ==
[2018-09-03] MEDS ORDERED: SILVER NITRATE TP ONE (12:08)
== END 2018-09-03 11:23 | disposition home or self-care (01) ==
LOC: WOUND 11:22
PROVIDERS: ATTEND Surgery
DX: E11.621 Type 2 diabetes mellitus with foot ulcer (principal); L97.412 Non-pressure chronic ulcer of right heel and midfoot with fat layer exposed; L97.422 Non-pressure chronic ulcer of left heel and midfoot with fat layer exposed; L84 Corns and callosities; E11.69 Type 2 diabetes mellitus with other specified complication; M86.8X7 Other osteomyelitis, ankle and foot; I11.0 Hypertensive heart disease with heart failure; I50.9 Heart failure, unspecified
CPT/HCPCS: 99215; G0463

== ENCOUNTER 2018-09-17 13:23 | Outpatient (CLI) | payer MEDICARE | END 2018-09-17 13:24 | disposition home or self-care (01) | LOC: WOUND 13:23 | CPT/HCPCS: 17250 ==

== ENCOUNTER 2018-09-24 12:50 | Outpatient (CLI) | payer MEDICARE ==
[2018-09-24] MEDS ORDERED: SILVER NITRATE TP ONE (12:54)
[2018-09-24] MEDS ORDERED: XYLOCAINE TOPICAL 4% TP ONE (12:54)
[2018-09-24] MEDS ORDERED: AD OINTMENT TP PRN (12:54)
== END 2018-09-24 12:51 | disposition home or self-care (01) ==
LOC: WOUND 12:50
PROVIDERS: ATTEND Surgery
DX: E11.621 Type 2 diabetes mellitus with foot ulcer (principal); L97.416 Non-pressure chronic ulcer of right heel and midfoot with bone involvement without evidence of necrosis; S91.302D Unspecified open wound, left foot, subsequent encounter; L84 Corns and callosities; E11.69 Type 2 diabetes mellitus with other specified complication; M86.8X7 Other osteomyelitis, ankle and foot; I11.0 Hypertensive heart disease with heart failure; I50.9 Heart failure, unspecified; X58.XXXD Exposure to other specified factors, subsequent encounter
CPT/HCPCS: 99215; A6250; G0463

== ENCOUNTER 2018-10-01 13:39 | Outpatient (CLI) | payer MEDICARE ==
[2018-10-01] MEDS ORDERED: XYLOCAINE TOPICAL 4% TP ONE (13:55)
[2018-10-01] MEDS ORDERED: SILVER NITRATE TP ONE (14:08)
[2018-10-02] MEDS ORDERED: AD OINTMENT TP SCH (10:00)
== END 2018-10-01 13:40 | disposition home or self-care (01) ==
LOC: WOUND 13:39
PROVIDERS: ATTEND Surgery
DX: E11.621 Type 2 diabetes mellitus with foot ulcer (principal); L97.412 Non-pressure chronic ulcer of right heel and midfoot with fat layer exposed; E11.69 Type 2 diabetes mellitus with other specified complication; M86.8X7 Other osteomyelitis, ankle and foot; I11.0 Hypertensive heart disease with heart failure; I50.9 Heart failure, unspecified
CPT/HCPCS: 17250

== ENCOUNTER 2018-10-08 13:04 | Outpatient (CLI) | payer MEDICARE ==
[2018-10-08] MEDS ORDERED: SILVER NITRATE TP ONE (13:45)
== END 2018-10-08 13:05 | disposition home or self-care (01) ==
LOC: WOUND 13:04
PROVIDERS: ATTEND Surgery
DX: E11.621 Type 2 diabetes mellitus with foot ulcer (principal); L97.416 Non-pressure chronic ulcer of right heel and midfoot with bone involvement without evidence of necrosis; S81.802D Unspecified open wound, left lower leg, subsequent encounter; E11.69 Type 2 diabetes mellitus with other specified complication; M86.8X7 Other osteomyelitis, ankle and foot; L84 Corns and callosities; I11.0 Hypertensive heart disease with heart failure; I50.9 Heart failure, unspecified; X58.XXXD Exposure to other specified factors, subsequent encounter

== ENCOUNTER 2018-12-31 09:47 | Outpatient (CLI) | payer MEDICARE ==
[2018-12-31] MEDS ORDERED: AD OINTMENT TP SCH (12:00)
== END 2018-12-31 09:48 | disposition home or self-care (01) ==
LOC: WOUND 09:47
PROVIDERS: ATTEND Surgery
DX: E11.621 Type 2 diabetes mellitus with foot ulcer (principal); L97.521 Non-pressure chronic ulcer of other part of left foot limited to breakdown of skin; L97.511 Non-pressure chronic ulcer of other part of right foot limited to breakdown of skin; L84 Corns and callosities; I11.0 Hypertensive heart disease with heart failure; I50.9 Heart failure, unspecified; Z98.49 Cataract extraction status, unspecified eye
CPT/HCPCS: 99215; A6250; G0463

== ENCOUNTER 2019-01-07 10:15 | Outpatient (CLI) | payer MEDICARE | END 2019-01-07 10:16 | disposition home or self-care (01) | LOC: WOUND 10:15 | PROVIDERS: ATTEND Surgery | DX: E11.621 Type 2 diabetes mellitus with foot ulcer (principal); L97.521 Non-pressure chronic ulcer of other part of left foot limited to breakdown of skin; L97.511 Non-pressure chronic ulcer of other part of right foot limited to breakdown of skin; L84 Corns and callosities; I11.0 Hypertensive heart disease with heart failure; I50.9 Heart failure, unspecified; Z98.49 Cataract extraction status, unspecified eye | CPT/HCPCS: 99212; G0463 ==

== ENCOUNTER 2019-06-03 18:38 | Emergency (ER) | payer MEDICARE ==
--- NOTE | 2019-06-03 20:17 | Event Note ---
ED Screening Note Date of service: 06/03/19 Time: 20:12 ED Screening Note: This is a 68 y.o. M. that presents to the ER with pain to right heel. PMH of DM, HTN, CHF, and CKD. Patient states he had a pressure ulcer on right heel that reopened. The home health nurse applied a dressing today and told him to f/u in the ER because it look infected. Patient also reports SOB that is intermittent. This initial assessment/diagnostic orders/clinical plan/treatment(s) is/are subject to change based on patients health status, clinical progression and re- assessment by fellow clinical providers in the ED. Further treatment and workup at subsequent clinical providers discretion. Patient/guardian urged not to elope from the ED as their condition may be serious if not clinically assessed and managed. Initial orders include: Labs, ekg, and cxr
[2019-06-03 20:35] LABS: Basophils # (Auto) 0.1 K/mm3 (0.0-0.1); Basophils % (Auto) 0.9 % (0.0-1.8); Eosinophils # (Auto) 0.1 K/mm3 (0.0-0.4); Eosinophils % (Auto) 1.9 % (0.0-4.3); Hematocrit 29.7 % (35.5-45.6); Hemoglobin 10.2 gm/dl (11.8-15.2); Lymphocytes # (Auto) 1.8 K/mm3 (1.2-5.4); Lymphocytes % (Auto) 30.5 % (13.4-35.0); Mean Corpuscular HGB Conc 34 % (32-34); Mean Corpuscular Volume 80 fl (84-94); Monocytes # (Auto) 0.7 K/mm3 (0.0-0.8); Monocytes % (Auto) 11.3 % (0.0-7.3); Platelet Count 262 K/mm3 (140-440); Red Blood Count 3.74 M/mm3 (3.65-5.03); Red Cell Distribution Width 16.1 % (13.2-15.2)
[2019-06-03 20:54] LABS: Calcium 8.5 mg/dL (8.4-10.2)
--- NOTE | 2019-06-03 21:04 | XRay Report ---
CHEST 2 VIEWS INDICATION / CLINICAL INFORMATION: MAIN: dyspnea PT C/O SOB AND WOUND TO RT HEEL POSS INFECTED PT HX CHF . COMPARISON: None available. FINDINGS: SUPPORT DEVICES: None. HEART / MEDIASTINUM: No significant abnormality. LUNGS / PLEURA: No significant pulmonary or pleural abnormality. No pneumothorax. ADDITIONAL FINDINGS: No significant additional findings. IMPRESSION: 1. No acute findings. Signer Name: Tomi Michaels MD Signed: 06/03/2019 9:00 PM Workstation Name: [id number]
--- NOTE | 2019-06-03 22:30 | Emergency Department Report ---
ED General Adult HPI - General Chief complaint: Dyspnea/Respdistress Stated complaint: SOB/DOMENICA Time Seen by Provider: 06/03/19 20:12 Source: patient, RN notes reviewed Mode of arrival: Ambulatory Limitations: No Limitations - History of Present Illness Initial comments: Primary care doctor: Dr Louis Kaminski Nephrology: Patient can't remember Wound care: Dr. Tim Alvarado this is a 68-year-old gentleman. The patient's past medical history includes congestive heart failure, ejection fraction 20-25%, chronic renal insufficiency, typically walks with a 4 point walker, chronic wounds to right heel, hypertension, type 2 diabetes. The patient presents to the ER with a complaint of recurrent wound to right posterior heel. He believes that he had a blister that popped. He denies pain. The patient reports that he had a chronic right-sided heel wound that he was following with Gen. surgery for, he reports that it improved. He further reports that he has follow-up next week with the aforementioned general surgeon in the wound clinic. At this point in time, he denies additional complaints. He specifically denies headache, neck pain, chest pain, abdominal pain, shortness of breath, irritative, obstructive urinary symptoms, nausea, vomiting, diarrhea. -: Gradual Location: right, lower extremity Consistency: constant Improves with: none Worsens with: none Associated Symptoms: denies other symptoms - Related Data Previous Rx's Medication Instructions Recorded Last Taken Type Ferrous Sulfate [Iron 325 MG] 325 mg PO DAILY #30 tablet 04/27/18 07/29/18 Rx Acetaminophen [Acetaminophen TAB] 2 tab PO Q4H PRN #14 tablet 05/23/19 Unknown Rx AtorvaSTATin 10 mg PO QHS #30 tablet 05/23/19 Unknown Rx Carvedilol [Coreg] 3.125 mg PO BID #60 tablet 05/23/19 Unknown Rx Gabapentin 100 mg PO BID #60 tab 05/23/19 Unknown Rx Insulin Aspart (Nf) [NovoLOG 1 dose SQ AC PRN #1 pen 05/23/19 Unknown Rx Flexpen] Insulin Detemir (Nf) [Levemir 12 unit SQ QHS #1 each 05/23/19 Unknown Rx Flextouch] Allergies Allergy/AdvReac Type Severity Reaction Status Date / Time No Known Allergies Allergy Unverified 08/09/18 13:52 ED Review of Systems ROS: Stated complaint: SOB/DOMENICA Other details as noted in HPI Constitutional: denies: fever Eyes: denies: eye discharge ENT: denies: congestion Respiratory: denies: cough, shortness of breath, SOB with exertion, wheezing Cardiovascular: denies: syncope Gastrointestinal: denies: abdominal pain, nausea, vomiting Genitourinary: denies: dysuria Skin: lesions Neurological: denies: weakness ED Past Medical Hx - Past Medical History Hx Hypertension: Yes Hx CVA: No Hx Heart Attack/AMI: No Hx Congestive Heart Failure: Yes Hx Diabetes: Yes Hx Deep Vein Thrombosis: No Hx Pulmonary Embolism: No Hx Liver Disease: No Hx Renal Disease: No Hx Sickle Cell Disease: No Hx Arthritis: No Hx Headaches / Migraines: No Hx Seizures: No Hx Kidney Stones: No Hx Psychiatric Treatment: No Hx Asthma: No Hx COPD: No Hx Tuberculosis: No Hx Dementia: No Hx HIV: No Additional medical history: High Cholesterol - Surgical History Hx Coronary Stent: No Hx Open Heart Surgery: No Hx Pacemaker: No Hx Internal Defibrillator: No Hx Cholecystectomy: No Hx Appendectomy: No Hx Breast Surgery: No Additional Surgical History: wounds on feet - Social History Smoking Status: Never Smoker Substance Use Type: None - Medications Home Medications: Home Medications Medication Instructions Recorded Confirmed Last Taken Type Ferrous Sulfate [Iron 325 MG] 325 mg PO DAILY #30 tablet 04/27/18 05/20/19 07/29/18 Rx Acetaminophen [Acetaminophen TAB] 2 tab PO Q4H PRN #14 tablet 05/23/19 Unknown Rx AtorvaSTATin 10 mg PO QHS #30 tablet 05/23/19 Unknown Rx Carvedilol [Coreg] 3.125 mg PO BID #60 tablet 05/23/19 Unknown Rx Gabapentin 100 mg PO BID #60 tab 05/23/19 05/20/19 Unknown Rx Insulin Aspart (Nf) [NovoLOG 1 dose SQ AC PRN #1 pen 05/23/19 Unknown Rx Flexpen] Insulin Detemir (Nf) [Levemir 12 unit SQ QHS #1 each 05/23/19 Unknown Rx Flextouch] ED Physical Exam - General Limitations: No Limitations General appearance: alert, in no apparent distress - Head Head exam: Present: atraumatic, normocephalic - Eye Eye exam: Present: normal appearance, EOMI. Absent: nystagmus - ENT ENT exam: Present: normal exam, normal orophraynx, mucous membranes moist, normal external ear exam - Neck Neck exam: Present: normal inspection, full ROM. Absent: tenderness, meningismus - Respiratory Respiratory exam: Present: normal lung sounds bilaterally. Absent: respiratory distress - Cardiovascular Cardiovascular Exam: Present: regular rate, normal rhythm, normal heart sounds. Absent: bradycardia, tachycardia, irregular rhythm, systolic murmur, diastolic murmur, rubs, gallop - GI/Abdominal GI/Abdominal exam: Present: soft. Absent: distended, tenderness, guarding, rebound, rigid, pulsatile mass - Rectal Rectal exam: Present: deferred - Extremities Exam Extremities exam: Present: full ROM, other (2+ pulses noted in the bilateral upper, lower extremities. There is no long bone tenderness. Musculoskeletal compartments are soft. The pelvis is stable.). Absent: normal inspection (chronic stasis changes noted in the bilateral lower extremities, there is a non tender right-sided heel ulcer, wound, approximately 2 x 3 cm, with no redness, pus or streaking. There is no palpable cord. There is a negative Homans sign.), pedal edema, calf tenderness - Back Exam Back exam: Present: normal inspection. Absent: tenderness, CVA tenderness (R), CVA tenderness (L), paraspinal tenderness, vertebral tenderness - Neurological Exam Neurological exam: Present: alert, normal gait, other (there is no facial droop. The tongue is midline. Extraocular movements are intact bilaterally. Patient speaking in full complete sentences. Shoulder shrug is intact bilaterally. Hearing is grossly intact bilaterally. Visual acuity intact to finger counting and color perception at a close distance. 5/5 strength 4 extremities. Sensation intact to light touch in 4 extremities.) - Psychiatric Psychiatric exam: Present: normal affect, normal mood - Skin Skin exam: Present: warm ED Course Vital Signs 06/03/19 20:01 Temperature 97.6 F Pulse Rate 83 Respiratory 17 Rate Blood Pressure 165/101 O2 Sat by Pulse 100 Oximetry ED Medical Decision Making - Lab Data Result diagrams: 06/03/19 20:25 06/03/19 20:25 Vital Signs 06/03/19 20:01 Temperature 97.6 F Pulse Rate 83 Respiratory 17 Rate Blood Pressure 165/101 O2 Sat by Pulse 100 Oximetry Lab Results 06/03/19 06/03/19 Range/Units 20:25 20:25 WBC 5.9 (4.5-11.0) K/mm3 RBC 3.74 (3.65-5.03) M/mm3 Hgb 10.2 L (11.8-15.2) gm/dl Hct 29.7 L (35.5-45.6) % MCV 80 L (84-94) fl MCH 27 L (28-32) pg MCHC 34 (32-34) % RDW 16.1 H (13.2-15.2) % Plt Count 262 (140-440) K/mm3 Lymph % (Auto) 30.5 (13.4-35.0) % [place] % (Auto) 11.3 H (0.0-7.3) % Eos % (Auto) 1.9 (0.0-4.3) % Baso % (Auto) 0.9 (0.0-1.8) % Lymph # 1.8 (1.2-5.4) K/mm3 [place] # 0.7 (0.0-0.8) K/mm3 Eos # 0.1 (0.0-0.4) K/mm3 Baso # 0.1 (0.0-0.1) K/mm3 Seg Neutrophils % 55.4 (40.0-70.0) % Seg Neutrophils # 3.3 (1.8-7.7) K/mm3 Sodium 138 (137-145) mmol/L Potassium 3.9 (3.6-5.0) mmol/L Chloride 104.0 (98-107) mmol/L Carbon Dioxide 20 L (22-30) mmol/L Anion Gap 18 mmol/L BUN 56 H (9-20) mg/dL Creatinine 2.7 H (0.8-1.5) mg/dL Estimated GFR 23 ml/min BUN/Creatinine Ratio 21 % Glucose 169 H (75-100) mg/dL Calcium 8.5 (8.4-10.2) mg/dL - EKG Data -: EKG Interpreted by Al EKG shows normal: sinus rhythm Rate: normal - EKG Data 06/03/19 22:56 The EKG shows a sinus rhythm, 76 bpm, left axis deviation, left anterior fascicular block, NH interval is prolonged, QTC is prolonged, there is motion artifact, the EKG is unchanged from prior EKG from 07/29/2018, the EKG is not consistent with ST elevation myocardial infarction. - Radiology Data Radiology results: report reviewed, image reviewed Print Report Referring Physician: GUERO NG Patient Name: GRAZYNA BOWIE Date of : 1950 Sex: Male Report Date: 2019-06-03 Report Status: Finalized Findings [facility] [address] [place] [address] XRay Report Signed Patient: GRAZYNA BOWIE MR#: [id number] : 1950 Acct:[id number] Age/Sex: 68 / M ADM Date: 06/03/19 Loc: ED Attending Dr: Ordering Physician: BETO MCCLELLAND Date of Service: 06/03/19 Procedure(s): XR chest routine 2V Accession Number(s): [id number] cc: BETO MCCLELLAND Fluoro Time In Minutes: CHEST 2 VIEWS INDICATION / CLINICAL IN FORMATION: MAIN: dyspnea PT C/O SOB AND WOUND TO RT HEEL POSS INFECTED PT HX CHF . COMPARISON: None available. FINDINGS: SUPPORT DEVICES: None. HEART / MEDIASTINUM: No significant abnormality. LUNGS / PLEURA: No significant pulmonary or pleural abnormality. No pneumothorax. ADDITIONAL FINDINGS: No s ignificant additional findings. IMPRESSION: 1. No acute findings. Signer Name: Tomi Michaels MD Signed: 06/03/2019 9:00 PM Workstation Name: [id number] Transcribed By: BC Dictated By: Tomi Michaels MD Electronically Authenticated By: Tomi Michaels MD Signed Date/Time: 06/03/192099 DD/ 99 - Medical Decision Making Differential diagnosis, including but not limited to: Chronic right-sided heel wound, acute on chronic wound, chronic renal insufficiency, chronic congestive heart failure Assessment and plan: 68-year-old gentleman with a primary complaint of painless acute on chronic right-sided heel ulcer. He has follow-up within the week at his outpatient wound care center. The wound does not appear to be infected. The patient makes no complaint of chest pain or shortness of breath. He is not hypoxic, not tachycardic, not tachypneic, has clear breath sounds, no JVD, clear chest x-ray, no evidence of DVT. As per review of triage and screening documentation, he did complain of intermittent shortness of breath, although he does not endorse this to me. The patient does not appear to have an emergent medical condition at this time. The patient is medically suitable to follow-up as an outpatient. Critical care attestation.: If time is entered above; I have spent that time in minutes in the direct care of this critically ill patient, excluding procedure time. ED Disposition Clinical Impression: Chronic kidney disease Qualifiers: Chronic kidney disease stage: unspecified stage Qualified Code(s): N18.9 - Chronic kidney disease, unspecified Heel ulcer Qualifiers: Laterality: right Disposition: DC-01 TO HOME OR SELFCARE Is pt being admited?: No Does the pt Need Aspirin: No Condition: Stable Additional Instructions: Continue current outpatient medications. Keep the bilateral heels clean and covered. Follow-up with your wound physician within the next week. Follow up with her primary care doctor within the next month. Return to the emergency room right away with new, worsened, different symptoms, or symptoms not present on the initial emergency room evaluation. Referrals: SHITAL ALVARADO MD [Staff Physician] - 7-10 days ALONSO KAMINSKI MD [Referring] - 7-10 days
[2019-06-03] MEDS ORDERED: carvediloL 3.125 MG TAB PO SCH (23:00)
[2019-06-04 00:14] VITALS: BP 191/111
== END 2019-06-03 23:15 | disposition home or self-care (01) ==
LOC: ED 18:38
DX: I13.0 Hypertensive heart and chronic kidney disease with heart failure and stage 1 through stage 4 chronic kidney disease, or unspecified chronic kidney disease (principal); I50.9 Heart failure, unspecified; N18.9 Chronic kidney disease, unspecified; E11.22 Type 2 diabetes mellitus with diabetic chronic kidney disease; E11.621 Type 2 diabetes mellitus with foot ulcer; L89.610 Pressure ulcer of right heel, unstageable; Z79.4 Long term (current) use of insulin; Z79.899 Other long term (current) drug therapy; E78.00 Pure hypercholesterolemia, unspecified
CPT/HCPCS: 36415; 71046; 80048; 85025; 93005; 93010; 99283

== ENCOUNTER 2019-06-10 08:01 | Outpatient (CLI) | payer MEDICARE ==
[2019-06-10] MEDS ORDERED: LIDOCAINE (4%) 40 MG/ML TOPICAL SOLN 50 ML BOTTLE TP ONE (08:25)
== END 2019-06-10 08:02 | disposition home or self-care (01) ==
LOC: WOUND 08:01
PROVIDERS: ATTEND Surgery
DX: E11.621 Type 2 diabetes mellitus with foot ulcer (principal); L89.612 Pressure ulcer of right heel, stage 2; L97.412 Non-pressure chronic ulcer of right heel and midfoot with fat layer exposed; L84 Corns and callosities; E11.40 Type 2 diabetes mellitus with diabetic neuropathy, unspecified; I87.2 Venous insufficiency (chronic) (peripheral); I11.0 Hypertensive heart disease with heart failure; I50.9 Heart failure, unspecified; Z79.4 Long term (current) use of insulin
CPT/HCPCS: 99214; G0463

== ENCOUNTER 2019-06-17 08:05 | Outpatient (CLI) | payer MEDICARE ==
[2019-06-17] MEDS ORDERED: LIDOCAINE (4%) 40 MG/ML TOPICAL SOLN 50 ML BOTTLE TP ONE (08:30)
== END 2019-06-17 08:06 | disposition home or self-care (01) ==
LOC: WOUND 08:05
PROVIDERS: ATTEND Surgery
DX: E11.621 Type 2 diabetes mellitus with foot ulcer (principal); L89.612 Pressure ulcer of right heel, stage 2; L97.512 Non-pressure chronic ulcer of other part of right foot with fat layer exposed; L84 Corns and callosities; E11.40 Type 2 diabetes mellitus with diabetic neuropathy, unspecified; I87.2 Venous insufficiency (chronic) (peripheral); I11.0 Hypertensive heart disease with heart failure; I50.9 Heart failure, unspecified

== ENCOUNTER 2019-07-01 07:51 | Outpatient (CLI) | payer MEDICARE ==
[2019-07-01] MEDS ORDERED: LIDOCAINE (4%) 40 MG/ML TOPICAL SOLN 50 ML BOTTLE TP ONE (08:30)
[2019-07-01] MEDS ORDERED: VITAMIN A & D OINT 56.7 GM TP SCH (08:30)
== END 2019-07-01 07:52 | disposition home or self-care (01) ==
LOC: WOUND 07:51
PROVIDERS: ATTEND Surgery
DX: E11.621 Type 2 diabetes mellitus with foot ulcer (principal); L89.612 Pressure ulcer of right heel, stage 2; L97.412 Non-pressure chronic ulcer of right heel and midfoot with fat layer exposed; L84 Corns and callosities; E11.40 Type 2 diabetes mellitus with diabetic neuropathy, unspecified; I87.2 Venous insufficiency (chronic) (peripheral); I11.0 Hypertensive heart disease with heart failure; I50.9 Heart failure, unspecified
CPT/HCPCS: 99214; G0463

== ENCOUNTER 2019-07-25 10:51 | Outpatient (CLI) | payer MEDICARE ==
[2019-07-25] MEDS ORDERED: VITAMIN A & D OINT 56.7 GM TP SCH (12:00)
== END 2019-07-25 10:52 | disposition home or self-care (01) ==
LOC: WOUND 10:51
PROVIDERS: ATTEND Surgery
DX: E11.621 Type 2 diabetes mellitus with foot ulcer (principal); L89.612 Pressure ulcer of right heel, stage 2; L97.412 Non-pressure chronic ulcer of right heel and midfoot with fat layer exposed; L84 Corns and callosities; E11.40 Type 2 diabetes mellitus with diabetic neuropathy, unspecified; I87.2 Venous insufficiency (chronic) (peripheral); I11.0 Hypertensive heart disease with heart failure; I50.9 Heart failure, unspecified
CPT/HCPCS: 99213; A6250; G0463